=== PATIENT | male | born 1950 | race Two or more races ===

== ENCOUNTER 2018-07-15 14:56 | Inpatient (IN) | payer MEDICARE, OTHER ==
[~2018-07-15] VITALS: Ht 175.3 cm; Wt 93.0 kg
[~2018-07-15 14:56] MED LIST: ASPI-1159 PO; ATOR20TA; GLIP10TA10 PO; LATA2.5D2 BOTHEYE; LOSA25TA3 PO; METF-416 PO; NPH,100V11 SQ; TIMO10DR30 BOTHEYE
[2018-07-15] MEDS ORDERED: DILTIAZEM HCL 90MG TABLET PO ONE (15:45)
[2018-07-15] MEDS ORDERED: DILTIAZEM HCL 5MG/ML 5ML VIAL IV ONE (15:45)
[2018-07-15] MEDS ORDERED: ASPIRIN 81MG TABLET PO ONE (15:45)
[2018-07-15 15:56] LABS: BASOPHILS % 0.4 % (0.0-2.0); EOSINOPHILS % 0.9 % (0.0-5.0); HEMATOCRIT. 46.1 % (42.0-52.0); HEMOGLOBIN. 15.4 g/dL (14.0-18.0); LYMPHOCYTES % 27.8 % (20.0-50.0); MEAN CORPUSCULAR HEMOGLOBIN 32.8 pg (28.0-32.0); MEAN CORPUSCULAR VOLUME 98.3 fL (80.0-94.0); MEAN PLATELET VOLUME 10.6 fl (7.4-10.4); MONOCYTES % 7.1 % (2.0-8.0); NEUTROPHILS % 63.8 % (40.0-76.0); PLATELET 113 x1000/uL (130-400); RED BLOOD CELL COUNT 4.69 mill/uL (4.7-6.1); RED CELL DISTRIBUTION WIDTH 13.4 % (11.6-14.6)
[2018-07-15 15:59] LABS: CHLORIDE 101 mEq/L (98-107)
[2018-07-15] MEDS ORDERED: ACETAMINOPHEN 325MG TABLET PO PRN (21:45)
[2018-07-15] MEDS ORDERED: CLONIDINE 0.1MG TABLET PO PRN (21:45)
[2018-07-15] MEDS ORDERED: ONDANSETRON HCL 4MG/2ML INJ IV PRN (21:45)
[2018-07-15] MEDS ORDERED: IPRATROPIUM/ALBUTEROL 0.5-3(2.5)MG/3ML NEB INH PRN (21:45)
[2018-07-15] MEDS ORDERED: HYDROCODONE/ACETAMINOPHEN 5/325MG TABLET PO PRN (21:45)
[2018-07-15 23:30] VITALS: BP 142/65
[2018-07-15 23:45] VITALS: BP 142/66
[2018-07-15] MEDS ORDERED: INFLUENZA VIRUS VACCINE(AFLURIA) 0.5ML SYR IM ONE (23:45)
[2018-07-15] MEDS ORDERED: PNEUMOCOCCAL 23-VAL P-SAC VAC 0.5 ML IM ONE (23:45)
[2018-07-16] VITALS (8 sets, daily range): BP systolic 101–129; BP diastolic 65–82
[2018-07-16] MEDS: ENOXAPARIN 100MG/ML SYR SUBCUT SCH ×2 (01:39→09:30)
[2018-07-16] MEDS: DILTIAZEM HCL 30MG TABLET PO SCH ×2 (01:42→07:52)
[2018-07-16] MEDS ORDERED: DEXTROSE 50% WATER 50ML SYRINGE IV PRN (06:15)
[2018-07-16 06:46] LABS: BASOPHILS % 0.2 % (0.0-2.0); EOSINOPHILS % 1.7 % (0.0-5.0); HEMATOCRIT. 43.2 % (42.0-52.0); HEMOGLOBIN. 14.4 g/dL (14.0-18.0); LYMPHOCYTES % 36.3 % (20.0-50.0); MEAN CORPUSCULAR HEMOGLOBIN 32.6 pg (28.0-32.0); MEAN PLATELET VOLUME 11.2 fl (7.4-10.4); MONOCYTES % 6.9 % (2.0-8.0); NEUTROPHILS % 54.9 % (40.0-76.0); PLATELET 103 x1000/uL (130-400); RED BLOOD CELL COUNT 4.41 mill/uL (4.7-6.1); RED CELL DISTRIBUTION WIDTH 13.1 % (11.6-14.6)
[2018-07-16] MEDS: BLOOD SUGAR DIAGNOSTIC STRIP TEST SCH ×4 (06:51→21:03)
[2018-07-16 06:58] LABS: CHLORIDE 103 mEq/L (98-107)
[2018-07-16 07:07] LABS: INR 1.4
[2018-07-16] MEDS: INSULIN LISPRO 100 UNITS/ML SUBCUT SCH ×4 (07:20→21:17)
[2018-07-16 07:23] LABS: HDL CHOLESTEROL 31 mg/dL (40-59)
[2018-07-16 07:26] LABS: LDL CHOLESTEROL 83 mg/dL (5-100)
[2018-07-16 07:27] LABS: CREATINE KINASE 46 IU/L (39-308)
[2018-07-16] MEDS: ASPIRIN 81MG EC TABLET PO SCH (13:55)
[2018-07-16] MEDS: CARVEDILOL 3.125 MG TABLET PO SCH ×2 (13:56→23:42)
[2018-07-16 16:23] LABS: CLARITY URINE CLOUDY (CLEAR); COLOR URINE YELLOW (YELLOW); KETONES URINE NEGATIVE (NEGATIVE); LEUKOCYTE ESTERASE URINE NEGATIVE (NEGATIVE); NITRITE URINE NEGATIVE (NEGATIVE); OCCULT BLOOD URINE TRACE (NEGATIVE); PROTEIN URINE 1+ (NEGATIVE)
[2018-07-16 16:36] LABS: *AMPHETAMINES SCREEN URINE NEGATIVE (NEGATIVE); *BARBITURATES SCREEN URINE NEGATIVE (NEGATIVE); *BENZODIAZEPINES SCREEN URINE NEGATIVE (NEGATIVE); *COCAINE SCREEN URINE NEGATIVE (NEGATIVE)
[2018-07-16 16:38] LABS: CANNABINOID URINE SCREEN NEGATIVE (NEGATIVE); METHADONE URINE SCREEN NEGATIVE (NEGATIVE); OPIATES URINE SCREEN NEGATIVE (NEGATIVE); PHENCYCLIDINE URINE SCREEN NEGATIVE (NEGATIVE)
[2018-07-16] MEDS: RIVAROXABAN 10 MG TABLET PO SCH (21:00)
[2018-07-17] VITALS (14 sets, daily range): BP systolic 98–126; BP diastolic 58–91
[2018-07-17] MEDS ORDERED: CARVEDILOL 12.5MG TABLET PO SCH (06:00)
[2018-07-17] MEDS: CARVEDILOL 3.125 MG TABLET PO SCH (06:00)
[2018-07-17] MEDS: BLOOD SUGAR DIAGNOSTIC STRIP TEST SCH ×4 (06:36→20:38)
[2018-07-17] MEDS: INSULIN LISPRO 100 UNITS/ML SUBCUT SCH ×4 (06:38→20:46)
[2018-07-17 06:59] LABS: CHLORIDE 102 mEq/L (98-107)
[2018-07-17 07:08] LABS: CREATINE KINASE MB FRACTION 1.2 ng/mL (0.5-3.6); HDL CHOLESTEROL 30 mg/dL (40-59); LDL CHOLESTEROL 91 mg/dL (5-100)
[2018-07-17 07:10] LABS: CREATINE KINASE 33 IU/L (39-308)
[2018-07-17 07:22] LABS: BASOPHILS % 0.3 % (0.0-2.0); HEMATOCRIT. 43.3 % (42.0-52.0); HEMOGLOBIN. 14.4 g/dL (14.0-18.0); LYMPHOCYTES % 19.9 % (20.0-50.0); MEAN CORPUSCULAR HEMOGLOBIN 32.2 pg (28.0-32.0); MEAN CORPUSCULAR VOLUME 96.6 fL (80.0-94.0); MEAN PLATELET VOLUME 11.6 fl (7.4-10.4); MONOCYTES % 6.9 % (2.0-8.0); NEUTROPHILS % 71.9 % (40.0-76.0); PLATELET 100 x1000/uL (130-400); RED BLOOD CELL COUNT 4.48 mill/uL (4.7-6.1); RED CELL DISTRIBUTION WIDTH 13.3 % (11.6-14.6)
[2018-07-17] MEDS: ASPIRIN 81MG EC TABLET PO SCH (09:31)
[2018-07-17] MEDS ORDERED: MAGNESIUM 1 G PREMIX 100 ML IV SCH (15:00)
[2018-07-17] MEDS: RIVAROXABAN 10 MG TABLET PO SCH (17:32)
[2018-07-17] MEDS: DIGOXIN 125MCG TABLET PO SCH (17:35)
[2018-07-17] MEDS: CARVEDILOL 12.5MG TABLET PO SCH (17:36)
[2018-07-18] VITALS (14 sets, daily range): BP systolic 81–117; BP diastolic 52–79
[2018-07-18] MEDS: BLOOD SUGAR DIAGNOSTIC STRIP TEST SCH ×4 (05:44→21:16)
[2018-07-18] MEDS: CARVEDILOL 12.5MG TABLET PO SCH ×2 (06:20→18:29)
[2018-07-18 06:27] LABS: BASOPHILS % 0.2 % (0.0-2.0); EOSINOPHILS % 1.4 % (0.0-5.0); HEMATOCRIT. 42.6 % (42.0-52.0); HEMOGLOBIN. 14.4 g/dL (14.0-18.0); LYMPHOCYTES % 27.8 % (20.0-50.0); MEAN CORPUSCULAR HEMOGLOBIN 32.9 pg (28.0-32.0); MEAN CORPUSCULAR VOLUME 97.1 fL (80.0-94.0); MEAN PLATELET VOLUME 11.7 fl (7.4-10.4); MONOCYTES % 8.7 % (2.0-8.0); NEUTROPHILS % 61.9 % (40.0-76.0); PLATELET 97 x1000/uL (130-400); RED BLOOD CELL COUNT 4.39 mill/uL (4.7-6.1); RED CELL DISTRIBUTION WIDTH 13.2 % (11.6-14.6)
[2018-07-18 07:49] LABS: CHLORIDE 102 mEq/L (98-107)
[2018-07-18] MEDS: ASPIRIN 81MG EC TABLET PO SCH (08:24)
[2018-07-18] MEDS: INSULIN LISPRO 100 UNITS/ML SUBCUT SCH ×4 (08:24→21:35)
[2018-07-18] MEDS: DILTIAZEM HCL 60MG TABLET PO SCH ×2 (14:39→21:23)
[2018-07-18] MEDS ORDERED: INSULIN GLARGINE UD 100 UNITS/ML SYR SUBCUT SCH (15:00)
[2018-07-18] MEDS: RIVAROXABAN 10 MG TABLET PO SCH (17:19)
[2018-07-18] MEDS: DIGOXIN 125MCG TABLET PO SCH (17:19)
[2018-07-19] VITALS (13 sets, daily range): BP systolic 92–117; BP diastolic 58–97
[2018-07-19] MEDS: BLOOD SUGAR DIAGNOSTIC STRIP TEST SCH ×4 (06:25→21:04)
[2018-07-19] MEDS: CARVEDILOL 12.5MG TABLET PO SCH ×2 (06:25→18:33)
[2018-07-19] MEDS: DILTIAZEM HCL 60MG TABLET PO SCH (06:25)
[2018-07-19 06:47] LABS: BASOPHILS % 0.2 % (0.0-2.0); EOSINOPHILS % 0.2 % (0.0-5.0); HEMATOCRIT. 45.4 % (42.0-52.0); HEMOGLOBIN. 15.2 g/dL (14.0-18.0); LYMPHOCYTES % 14.4 % (20.0-50.0); MEAN CORPUSCULAR HEMOGLOBIN 32.8 pg (28.0-32.0); MEAN CORPUSCULAR VOLUME 97.8 fL (80.0-94.0); MEAN PLATELET VOLUME 11.7 fl (7.4-10.4); MONOCYTES % 4.7 % (2.0-8.0); NEUTROPHILS % 80.5 % (40.0-76.0); PLATELET 100 x1000/uL (130-400); RED BLOOD CELL COUNT 4.65 mill/uL (4.7-6.1); RED CELL DISTRIBUTION WIDTH 13.3 % (11.6-14.6)
[2018-07-19] MEDS: INSULIN LISPRO 100 UNITS/ML SUBCUT SCH ×4 (07:37→21:16)
[2018-07-19] MEDS: ASPIRIN 81MG EC TABLET PO SCH (09:00)
[2018-07-19 11:00] LABS: CREATINE KINASE 31 IU/L (39-308)
[2018-07-19 11:02] LABS: CREATINE KINASE MB FRACTION < 1.0 ng/mL (0.5-3.6)
[2018-07-19 11:54] LABS: DIGOXIN 0.5 ng/mL (0.9-2.0)
[2018-07-19] MEDS: DILTIAZEM HCL 30MG TABLET PO SCH ×2 (14:00→22:00)
[2018-07-19] MEDS ORDERED: SODIUM CHLORIDE 0.9% 500 ML IV SCH (14:15)
[2018-07-19] MEDS ORDERED: RIVAROXABAN 20 MG TABLET PO SCH (17:20)
[2018-07-20] VITALS (15 sets, daily range): BP systolic 99–140; BP diastolic 56–95
[2018-07-20] MEDS: DILTIAZEM HCL 30MG TABLET PO SCH ×3 (05:59→22:00)
[2018-07-20] MEDS: CARVEDILOL 12.5MG TABLET PO SCH ×2 (06:00→17:29)
[2018-07-20] MEDS: BLOOD SUGAR DIAGNOSTIC STRIP TEST SCH ×4 (06:02→21:09)
[2018-07-20 06:23] LABS: BASOPHILS % 0.3 % (0.0-2.0); EOSINOPHILS % 0.9 % (0.0-5.0); HEMOGLOBIN. 14.2 g/dL (14.0-18.0); LYMPHOCYTES % 26.4 % (20.0-50.0); MEAN CORPUSCULAR HEMOGLOBIN 33.1 pg (28.0-32.0); MEAN CORPUSCULAR VOLUME 97.7 fL (80.0-94.0); MEAN PLATELET VOLUME 11.7 fl (7.4-10.4); MONOCYTES % 7.1 % (2.0-8.0); NEUTROPHILS % 65.3 % (40.0-76.0); PLATELET 94 x1000/uL (130-400); RED CELL DISTRIBUTION WIDTH 13.4 % (11.6-14.6)
[2018-07-20 06:37] LABS: CHLORIDE 100 mEq/L (98-107)
[2018-07-20 07:01] LABS: CREATINE KINASE 22 IU/L (39-308)
[2018-07-20 07:13] LABS: DIGOXIN 0.4 ng/mL (0.9-2.0)
[2018-07-20] MEDS: INSULIN LISPRO 100 UNITS/ML SUBCUT SCH ×4 (07:20→21:13)
[2018-07-20] MEDS ORDERED: MAGNESIUM CITRATE 300ML SOLUTION PO NR (14:00)
[2018-07-20 14:04] LABS: HEPATITIS B SURFACE ANTIGEN NEGATIVE
[2018-07-20] MEDS: ASPIRIN 81MG EC TABLET PO SCH (14:07)
[2018-07-20 14:34] LABS: HEPATITIS A AB IGM NEGATIVE (NEGATIVE)
[2018-07-20 15:16] LABS: AMYLASE 35 IU/L (25-115)
[2018-07-20 18:50] LABS: CHLORIDE 101 mEq/L (98-107)
[2018-07-21] VITALS (12 sets, daily range): BP systolic 99–136; BP diastolic 50–91
[2018-07-21] MEDS ORDERED: SODIUM CHLORIDE 0.45% 1,000 ML IV SCH
[2018-07-21] MEDS: DILTIAZEM HCL 30MG TABLET PO SCH ×3 (06:00→21:03)
[2018-07-21] MEDS: CARVEDILOL 12.5MG TABLET PO SCH ×2 (06:00→18:00)
[2018-07-21] MEDS: BLOOD SUGAR DIAGNOSTIC STRIP TEST SCH ×4 (06:13→21:01)
[2018-07-21 07:06] LABS: BASOPHILS % 0.3 % (0.0-2.0); EOSINOPHILS % 0.8 % (0.0-5.0); HEMATOCRIT. 42.2 % (42.0-52.0); LYMPHOCYTES % 25.2 % (20.0-50.0); MEAN CORPUSCULAR HEMOGLOBIN 32.8 pg (28.0-32.0); MEAN CORPUSCULAR VOLUME 98.8 fL (80.0-94.0); MEAN PLATELET VOLUME 11.5 fl (7.4-10.4); MONOCYTES % 8.7 % (2.0-8.0); PLATELET 89 x1000/uL (130-400); RED BLOOD CELL COUNT 4.28 mill/uL (4.7-6.1); RED CELL DISTRIBUTION WIDTH 13.3 % (11.6-14.6)
[2018-07-21] MEDS: INSULIN LISPRO 100 UNITS/ML SUBCUT SCH ×4 (07:20→21:00)
[2018-07-21 07:47] LABS: CHLORIDE 101 mEq/L (98-107)
[2018-07-21] MEDS: ASPIRIN 81MG EC TABLET PO SCH (11:00)
[2018-07-21] MEDS ORDERED: ENOXAPARIN 80MG/0.8ML SYR SUBCUT SCH (13:30)
[2018-07-21] MEDS: SODIUM CHLORIDE 0.45% 1,000 ML IV SCH (15:41)
[2018-07-21] MEDS ORDERED: LEVOFLOXACIN 500MG PREMIX 100 ML IV SCH (18:00)
[2018-07-21] MEDS: METRONIDAZOLE 500 MG PREMIX 100 ML IV SCH ×2 (18:16→23:00)
[2018-07-21] MEDS: ENOXAPARIN 80MG/0.8ML SYR SUBCUT SCH (20:06)
[2018-07-22] VITALS: BP 112/74
[2018-07-22 02:00] VITALS: BP 117/75
[2018-07-22 04:00] VITALS: BP 111/61
[2018-07-22] MEDS: DILTIAZEM HCL 30MG TABLET PO SCH ×2 (05:04→13:17)
[2018-07-22] MEDS: METRONIDAZOLE 500 MG PREMIX 100 ML IV SCH ×2 (05:04→13:18)
[2018-07-22] MEDS: BLOOD SUGAR DIAGNOSTIC STRIP TEST SCH ×2 (05:30→11:36)
[2018-07-22] MEDS: INSULIN LISPRO 100 UNITS/ML SUBCUT SCH ×2 (05:31→12:02)
[2018-07-22 05:50] VITALS: BP 121/74
[2018-07-22] MEDS ORDERED: CARVEDILOL 25MG TABLET PO SCH (06:00)
[2018-07-22 06:36] LABS: BASOPHILS % 0.2 % (0.0-2.0); EOSINOPHILS % 0.8 % (0.0-5.0); HEMATOCRIT. 42.5 % (42.0-52.0); HEMOGLOBIN. 14.1 g/dL (14.0-18.0); LYMPHOCYTES % 21.6 % (20.0-50.0); MEAN CORPUSCULAR HEMOGLOBIN 32.7 pg (28.0-32.0); MEAN CORPUSCULAR VOLUME 98.5 fL (80.0-94.0); MEAN PLATELET VOLUME 12.2 fl (7.4-10.4); MONOCYTES % 9.6 % (2.0-8.0); NEUTROPHILS % 67.8 % (40.0-76.0); PLATELET 94 x1000/uL (130-400); RED BLOOD CELL COUNT 4.32 mill/uL (4.7-6.1); RED CELL DISTRIBUTION WIDTH 13.1 % (11.6-14.6)
[2018-07-22 06:42] LABS: CHLORIDE 99 mEq/L (98-107)
[2018-07-22 08:00] VITALS: BP 95/72
[2018-07-22] MEDS: ASPIRIN 81MG EC TABLET PO SCH (08:08)
[2018-07-22] MEDS: ENOXAPARIN 80MG/0.8ML SYR SUBCUT SCH (08:09)
[2018-07-22 12:00] VITALS: BP 113/72
[2018-07-22] MEDS: SODIUM CHLORIDE 0.45% 1,000 ML IV SCH ×2 (12:01→15:40)
== END 2018-07-22 15:52 | disposition home or self-care (01) | DRG 308 ==
LOC: ER 15:42 → 3WST 16:28 → EDBEDREQSVC 16:31 → EDBEDREQ 16:31 → EDBEDREQTM 16:31 → ENRESERV 21:45
PROVIDERS: ADMIT Internal Medicine; ATTEND Internal Medicine
DX: I48.91 Unspecified atrial fibrillation (principal); I50.23 Acute on chronic systolic (congestive) heart failure; D68.59 Other primary thrombophilia; K80.12 Calculus of gallbladder with acute and chronic cholecystitis without obstruction; R18.8 Other ascites; I25.10 Atherosclerotic heart disease of native coronary artery without angina pectoris; I11.0 Hypertensive heart disease with heart failure; E11.9 Type 2 diabetes mellitus without complications; F17.200 Nicotine dependence, unspecified, uncomplicated; I48.92 Unspecified atrial flutter; N28.1 Cyst of kidney, acquired; K74.60 Unspecified cirrhosis of liver; I95.9 Hypotension, unspecified; D69.6 Thrombocytopenia, unspecified; I25.5 Ischemic cardiomyopathy; R10.13 Epigastric pain; R74.0 Nonspecific elevation of levels of transaminase and lactic acid dehydrogenase [LDH]; E78.00 Pure hypercholesterolemia, unspecified; E83.42 Hypomagnesemia; R80.9 Proteinuria, unspecified; Z91.19 Patient's noncompliance with other medical treatment and regimen; Z95.810 Presence of automatic (implantable) cardiac defibrillator; Z95.1 Presence of aortocoronary bypass graft; Z79.82 Long term (current) use of aspirin; Z79.899 Other long term (current) drug therapy
CPT/HCPCS: 36415; 71045; 76700; 78227; 80048; 80061; 80162; 80305; 82150; 82550; 82553; 82962; 83036; 83735; 83880; 84439; 84443; 84484; 85379; 86022; 86705; 86709; 86803; 87340; 90686; 90732; 93005; 93306; 93970; 96372; 96374; 99291; A9537; J1650; J1815; J1956; J2405; J3475; J3490; J7040

== ENCOUNTER 2018-08-02 14:43 | Inpatient (IN) | payer MEDICARE ==
[~2018-08-02] VITALS: Ht 172.7 cm; Wt 85.7 kg
[~2018-08-02 14:43] MED LIST changes: -ASPI-1159 PO
[2018-08-02] MEDS ORDERED: ONDANSETRON HCL 4MG/2ML INJ IV STA (15:22)
[2018-08-02] MEDS ORDERED: MORPHINE SULFATE 4 MG/ML CPJ (NOT FOR IM USE) IV STA (15:22)
[2018-08-02] MEDS ORDERED: FUROSEMIDE 20MG/2ML VIAL IVP ONE (15:30)
[2018-08-02] MEDS ORDERED: NITROGLYCERIN OINT 1GM/INCH UDPKT TD ONE (15:30)
[2018-08-02 15:34] LABS: BASOPHILS % 0.4 % (0.0-2.0); EOSINOPHILS % 1.3 % (0.0-5.0); HEMATOCRIT. 44.5 % (42.0-52.0); LYMPHOCYTES % 24.3 % (20.0-50.0); MEAN CORPUSCULAR HEMOGLOBIN 33.1 pg (28.0-32.0); MEAN CORPUSCULAR VOLUME 98.6 fL (80.0-94.0); MEAN PLATELET VOLUME 10.9 fl (7.4-10.4); MONOCYTES % 7.7 % (2.0-8.0); NEUTROPHILS % 66.3 % (40.0-76.0); PLATELET 110 x1000/uL (130-400); RED BLOOD CELL COUNT 4.52 mill/uL (4.7-6.1); RED CELL DISTRIBUTION WIDTH 14.1 % (11.6-14.6)
[2018-08-02 15:38] LABS: CHLORIDE 100 mEq/L (98-107)
[2018-08-02 15:40] LABS: INR 1.8; PARTIAL THROMBOPLASTIN TIME 37.1 sec (23.4-31.0); PROTHROMBIN TIME 17.9 sec (9.6-11.0)
[2018-08-02] MEDS ORDERED: DIPHENHYDRAMINE 50MG/ML VIAL IV PRN (17:15)
[2018-08-02] MEDS ORDERED: NA PHOS,M-B/NA PHOS,DI-BA ENEMA 118ML PR PRN (17:15)
[2018-08-02] MEDS ORDERED: DEXTROSE 50% WATER 50ML SYRINGE IV PRN (17:15)
[2018-08-02] MEDS ORDERED: CLONIDINE 0.1MG TABLET PO PRN (17:15)
[2018-08-02] MEDS ORDERED: ACETAMINOPHEN 325MG TABLET PO PRN (17:15)
[2018-08-02] MEDS ORDERED: ONDANSETRON HCL 4MG/2ML INJ IV PRN (17:15)
[2018-08-02] MEDS ORDERED: HYDROCODONE/ACETAMINOPHEN 5/325MG TABLET PO PRN (17:15)
[2018-08-02] MEDS ORDERED: DOCUSATE SODIUM 100MG CAPSULE PO PRN (17:15)
[2018-08-02] MEDS ORDERED: LORAZEPAM 0.5MG TABLET PO PRN (17:15)
[2018-08-02] MEDS ORDERED: ACETAMINOPHEN 650MG SUPP PR PRN (17:15)
[2018-08-02] MEDS ORDERED: GUAIFENESIN 200MG/10ML SUGAR FREE UDC PO PRN (17:15)
[2018-08-02] MEDS ORDERED: MAGNESIUM/ALUMINUM HYDROXIDE/SIMETHICONE 30ML UDC PO PRN (17:15)
[2018-08-02 18:02] LABS: BG BASE EXCESS -3.3 mmol/L (-2.0-2.0); BG CARBOXYHEMOGLOBIN 0.5 % (0.5-1.5); BG DEOXYHEMOGLOBIN 7.6 % (0.0-5.0); BG FRACTION INSPIRED OXYGEN 21; BG HCO3 ACT 20.9 mmol/L (22.0-26.0); BG METHEMOGLOBIN 0.3 % (0.0-1.5); BG OXYGEN SATURATION 92.3 % (92.0-98.5); BG OXYHEMOGLOBIN 91.6 % (94.0-97.0); BG PCO2 35.2 mmHg (35.0-45.0); BG PH 7.392 (7.350-7.450); BG PO2 67.1 mmHg (75.0-100.0); BG SAMPLE SITE RIGHT RADIAL; BG TOTAL HEMOGLOBIN 14.6 g/dL (12.0-18.0); BG VENT MODE ROOM AIR
[2018-08-02 18:34] LABS: CLARITY URINE CLEAR (CLEAR); COLOR URINE YELLOW (YELLOW); KETONES URINE NEGATIVE (NEGATIVE); LEUKOCYTE ESTERASE URINE NEGATIVE (NEGATIVE); NITRITE URINE NEGATIVE (NEGATIVE); OCCULT BLOOD URINE NEGATIVE (NEGATIVE); PROTEIN URINE NEGATIVE (NEGATIVE); SPECIFIC GRAVITY URINE 1.009 (1.005-1.030); UROBILINOGEN URINE 0.2 E.U./dL (0.2-1.0)
[2018-08-02 18:45] LABS: *BENZODIAZEPINES SCREEN URINE NEGATIVE (NEGATIVE); *COCAINE SCREEN URINE NEGATIVE (NEGATIVE); METHADONE URINE SCREEN NEGATIVE (NEGATIVE); OPIATES URINE SCREEN PRESUMTIVE POSITIVE (NEGATIVE); PHENCYCLIDINE URINE SCREEN NEGATIVE (NEGATIVE)
[2018-08-02 18:46] LABS: *AMPHETAMINES SCREEN URINE NEGATIVE (NEGATIVE); *BARBITURATES SCREEN URINE NEGATIVE (NEGATIVE); CANNABINOID URINE SCREEN NEGATIVE (NEGATIVE)
[2018-08-02] MEDS ORDERED: PIPERACILLIN/TAZ 3.375G PREMIX 50 ML IV NR (20:15)
[2018-08-02] MEDS ORDERED: IOHEXOL-350 100 ML BOTTLE ONE (21:33)
[2018-08-02 23:13] VITALS: BP 154/105
[2018-08-03 01:03] LABS: CREATINE KINASE MB FRACTION 1.3 ng/mL (0.5-3.6)
[2018-08-03] MEDS ORDERED: CARV12.545 PO (01:13)
[2018-08-03] MEDS ORDERED: METR-218 PO (01:13)
[2018-08-03] MEDS ORDERED: RIVA20TA PO (01:13)
[2018-08-03] MEDS ORDERED: DILT-26 PO (01:13)
[2018-08-03] MEDS ORDERED: PIPERACILLIN/TAZ 3.375G PREMIX 50 ML IV SCH (02:00)
[2018-08-03 04:00] VITALS: BP 129/86
[2018-08-03] MEDS: DILTIAZEM HCL 30MG TABLET PO SCH ×4 (05:08→17:03)
[2018-08-03] MEDS: PIPERACILLIN/TAZ 3.375G PREMIX 50 ML IV SCH ×3 (05:16→17:51)
[2018-08-03] MEDS: NITROGLYCERIN OINT 1GM/INCH UDPKT TD SCH ×3 (05:17→21:15)
[2018-08-03 06:27] LABS: BASOPHILS % 0.2 % (0.0-2.0); EOSINOPHILS % 1.1 % (0.0-5.0); HEMATOCRIT. 39.8 % (42.0-52.0); HEMOGLOBIN. 13.4 g/dL (14.0-18.0); LYMPHOCYTES % 26.3 % (20.0-50.0); MEAN CORPUSCULAR HEMOGLOBIN 33.1 pg (28.0-32.0); MEAN CORPUSCULAR VOLUME 98.2 fL (80.0-94.0); MEAN PLATELET VOLUME 11.2 fl (7.4-10.4); MONOCYTES % 9.5 % (2.0-8.0); NEUTROPHILS % 62.9 % (40.0-76.0); PLATELET 93 x1000/uL (130-400); RED BLOOD CELL COUNT 4.05 mill/uL (4.7-6.1); RED CELL DISTRIBUTION WIDTH 13.6 % (11.6-14.6)
[2018-08-03 06:39] LABS: CHLORIDE 103 mEq/L (98-107)
[2018-08-03] MEDS: BLOOD SUGAR DIAGNOSTIC STRIP TEST SCH ×4 (06:47→21:04)
[2018-08-03 06:50] LABS: CREATINE KINASE 38 IU/L (39-308)
[2018-08-03 06:54] LABS: CREATINE KINASE MB FRACTION < 1.0 ng/mL (0.5-3.6)
[2018-08-03] MEDS: INSULIN LISPRO 100 UNITS/ML SUBCUT SCH ×4 (07:48→21:21)
[2018-08-03 08:00] VITALS: BP 177/90
[2018-08-03 08:57] LABS: INR 1.5; PROTHROMBIN TIME 15.1 sec (9.6-11.0)
[2018-08-03] MEDS ORDERED: ASPIRIN 81MG TABLET PO SCH (09:00)
[2018-08-03] MEDS: FUROSEMIDE 40MG/4ML VIAL IVP SCH ×2 (09:05→16:49)
[2018-08-03] MEDS ORDERED: CLONIDINE 0.1MG TABLET PO PRN (10:15)
[2018-08-03] MEDS: CARVEDILOL 12.5MG TABLET PO SCH ×2 (11:05→21:00)
[2018-08-03] MEDS: LOSARTAN POTASSIUM 25 MG TABLET PO SCH (11:05)
[2018-08-03 12:49] VITALS: BP 127/78
[2018-08-03 16:00] VITALS: BP 103/63
[2018-08-03 20:14] VITALS: BP 94/55
[2018-08-03] MEDS ORDERED: CARVEDILOL 6.25 MG TABLET PO SCH (21:00)
[2018-08-03 23:49] VITALS: BP 109/68
[2018-08-04] VITALS (11 sets, daily range): BP systolic 90–125; BP diastolic 49–84
[2018-08-04] MEDS: PIPERACILLIN/TAZ 3.375G PREMIX 50 ML IV SCH ×4 (00:42→18:00)
[2018-08-04] MEDS: IPRATROPIUM/ALBUTEROL 0.5-3(2.5)MG/3ML NEB INH SCH ×3 (02:11→23:01)
[2018-08-04] MEDS: DILTIAZEM HCL 30MG TABLET PO SCH ×4 (06:00→18:00)
[2018-08-04] MEDS: NITROGLYCERIN OINT 1GM/INCH UDPKT TD SCH ×3 (06:04→22:00)
[2018-08-04] MEDS: BLOOD SUGAR DIAGNOSTIC STRIP TEST SCH ×3 (06:05→20:17)
[2018-08-04 07:09] LABS: INR 1.4; PROTHROMBIN TIME 14.4 sec (9.6-11.0)
[2018-08-04 07:16] LABS: BASOPHILS % 0.4 % (0.0-2.0); EOSINOPHILS % 2.3 % (0.0-5.0); HEMOGLOBIN. 13.3 g/dL (14.0-18.0); LYMPHOCYTES % 32.6 % (20.0-50.0); MEAN CORPUSCULAR HEMOGLOBIN 32.8 pg (28.0-32.0); MEAN CORPUSCULAR VOLUME 98.5 fL (80.0-94.0); MEAN PLATELET VOLUME 11.5 fl (7.4-10.4); MONOCYTES % 9.9 % (2.0-8.0); NEUTROPHILS % 54.8 % (40.0-76.0); PLATELET 101 x1000/uL (130-400); RED BLOOD CELL COUNT 4.06 mill/uL (4.7-6.1); RED CELL DISTRIBUTION WIDTH 13.8 % (11.6-14.6)
[2018-08-04] MEDS: INSULIN LISPRO 100 UNITS/ML SUBCUT SCH ×3 (07:50→20:31)
[2018-08-04 07:56] LABS: CHLORIDE 99 mEq/L (98-107)
[2018-08-04] MEDS: LOSARTAN POTASSIUM 25 MG TABLET PO SCH (08:06)
[2018-08-04] MEDS: CARVEDILOL 12.5MG TABLET PO SCH (08:20)
[2018-08-04] MEDS: FUROSEMIDE 40MG/4ML VIAL IVP SCH ×2 (08:20→17:56)
[2018-08-04] MEDS ORDERED: DEXT 5%/0.45% NACL 500ML 500 ML IV ONE (09:00)
[2018-08-04] MEDS ORDERED: ENOXAPARIN 100MG/ML SYR SUBCUT SCH (09:00)
[2018-08-04] MEDS ORDERED: HEPARIN SODIUM 1,000 UNIT/1ML VIAL IV ONE (10:34)
[2018-08-04] MEDS ORDERED: NITROGLYCERIN 50MCG/ML 10ML VIAL (CATH LAB) IV ONE (10:34)
[2018-08-04] MEDS ORDERED: NICARDIPINE 100MCG/ML 10ML VIAL (CATH LAB) IV ONE (10:34)
[2018-08-04] MEDS ORDERED: ASPIRIN/SOD BICARB/CITRIC ACID 324MG TAB EFF ONE ×2 (12:21→13:17)
[2018-08-04] MEDS ORDERED: LIDOCAINE HCL 1% 20ML VIAL (Pyxis) INJ ONE (12:21)
[2018-08-04] MEDS ORDERED: IODIXANOL 320MG/ML 100 ML BOTTLE IV ONE (12:21)
[2018-08-04] MEDS ORDERED: FENTANYL CITRATE/PF 50MCG/ML 2ML VIAL ONE (13:20)
[2018-08-04] MEDS ORDERED: MIDAZOLAM HCL 2 MG/2 ML VIAL ONE (13:20)
[2018-08-04] MEDS ORDERED: MORPHINE SULFATE 4 MG/ML CPJ (NOT FOR IM USE) IV PRN (14:30)
[2018-08-04] MEDS ORDERED: ATROPINE SULFATE 1MG/10ML SYR IV PRN (14:30)
[2018-08-04] MEDS ORDERED: ONDANSETRON HCL 4MG/2ML INJ IV PRN (14:30)
[2018-08-04] MEDS ORDERED: SODIUM CHLORIDE 0.45% 500 ML IV ONE (14:30)
[2018-08-04] MEDS ORDERED: ACETAMINOPHEN 325MG TABLET PO PRN (14:30)
[2018-08-04] MEDS: CARVEDILOL 6.25 MG TABLET PO SCH (20:30)
[2018-08-05] VITALS (13 sets, daily range): BP systolic 90–120; BP diastolic 44–83
[2018-08-05] MEDS: DILTIAZEM HCL 30MG TABLET PO SCH ×3 (00:16→11:46)
[2018-08-05] MEDS: PIPERACILLIN/TAZ 3.375G PREMIX 50 ML IV SCH ×3 (00:16→12:12)
[2018-08-05] MEDS: IPRATROPIUM/ALBUTEROL 0.5-3(2.5)MG/3ML NEB INH SCH ×3 (04:38→15:55)
[2018-08-05] MEDS: NITROGLYCERIN OINT 1GM/INCH UDPKT TD SCH ×2 (05:59→14:08)
[2018-08-05] MEDS: INSULIN LISPRO 100 UNITS/ML SUBCUT SCH ×2 (06:00→12:12)
[2018-08-05] MEDS: BLOOD SUGAR DIAGNOSTIC STRIP TEST SCH ×2 (06:00→11:32)
[2018-08-05 06:39] LABS: BASOPHILS % 0.3 % (0.0-2.0); HEMATOCRIT. 42.7 % (42.0-52.0); HEMOGLOBIN. 14.2 g/dL (14.0-18.0); LYMPHOCYTES % 30.8 % (20.0-50.0); MEAN CORPUSCULAR HEMOGLOBIN 32.5 pg (28.0-32.0); MEAN CORPUSCULAR VOLUME 98.1 fL (80.0-94.0); MEAN PLATELET VOLUME 10.4 fl (7.4-10.4); MONOCYTES % 10.7 % (2.0-8.0); NEUTROPHILS % 56.2 % (40.0-76.0); PLATELET 107 x1000/uL (130-400); RED BLOOD CELL COUNT 4.35 mill/uL (4.7-6.1)
[2018-08-05 07:28] LABS: CHLORIDE 97 mEq/L (98-107)
[2018-08-05] MEDS: FUROSEMIDE 40MG/4ML VIAL IVP SCH (07:55)
[2018-08-05] MEDS: LOSARTAN POTASSIUM 25 MG TABLET PO SCH (07:55)
[2018-08-05] MEDS: CARVEDILOL 6.25 MG TABLET PO SCH (07:56)
[2018-08-05] MEDS ORDERED: POTASSIUM CHLORIDE 20MEQ TABLET SR PO NR (09:45)
[2018-08-05] MEDS ORDERED: RIVAROXABAN 20 MG TABLET PO SCH (17:20)
[2018-08-05] MEDS ORDERED: ATORVASTATIN CALCIUM 20MG TABLET PO SCH (21:00)
== END 2018-08-05 17:30 | disposition home or self-care (01) | DRG 287 ==
LOC: ER 14:43 → 6WST 17:01 → EDBEDREQ 17:02 → ENRESERV 20:26 → 3WST 08-04 14:40
PROVIDERS: ADMIT Internal Medicine; ATTEND Internal Medicine
PROC: 4A023N7 Measurement of Cardiac Sampling and Pressure, Left Heart, Percutaneous Approach (ICD-10-PCS; principal; 2018-08-04)
PROC: B2111ZZ Fluoroscopy of Multiple Coronary Arteries using Low Osmolar Contrast (ICD-10-PCS; 2018-08-04)
PROC: B2131ZZ Fluoroscopy of Multiple Coronary Artery Bypass Grafts using Low Osmolar Contrast (ICD-10-PCS; 2018-08-04)
DX: I11.0 Hypertensive heart disease with heart failure (principal); I48.1 Persistent atrial fibrillation; D68.59 Other primary thrombophilia; K80.00 Calculus of gallbladder with acute cholecystitis without obstruction; R18.8 Other ascites; I48.92 Unspecified atrial flutter; I50.23 Acute on chronic systolic (congestive) heart failure; D69.6 Thrombocytopenia, unspecified; E11.65 Type 2 diabetes mellitus with hyperglycemia; K74.60 Unspecified cirrhosis of liver; E78.5 Hyperlipidemia, unspecified; I25.5 Ischemic cardiomyopathy; I25.10 Atherosclerotic heart disease of native coronary artery without angina pectoris; E78.00 Pure hypercholesterolemia, unspecified; I25.82 Chronic total occlusion of coronary artery; I48.2 Chronic atrial fibrillation; Z79.01 Long term (current) use of anticoagulants; Z95.1 Presence of aortocoronary bypass graft; Z95.810 Presence of automatic (implantable) cardiac defibrillator; Z91.19 Patient's noncompliance with other medical treatment and regimen; I25.2 Old myocardial infarction; Z79.84 Long term (current) use of oral hypoglycemic drugs
CPT/HCPCS: 36415; 36600; 71045; 71275; 76700; 80048; 80305; 82375; 82550; 82553; 82805; 82962; 83735; 83880; 84484; 93005; 93459; 93970; 94618; 96374; 96375; 99291; C1769; C1887; C1893; J1644; J1815; J1940; J2250; J2270; J2405; J2543; J3010; J3490; J7050; J7620; Q9967

== ENCOUNTER 2018-09-14 15:41 | Inpatient (IN) | payer MEDICARE ==
[~2018-09-14] VITALS: Ht 172.7 cm; Wt 86.6 kg
[~2018-09-14 15:41] MED LIST changes: -ATOR20TA; +ATOR20TA PO; +RIVA20TA PO
[2018-09-14] MEDS ORDERED: ASPIRIN 81MG TABLET PO ONE (16:30)
[2018-09-14 16:47] LABS: BASOPHILS % 0.4 % (0.0-2.0); EOSINOPHILS % 1.5 % (0.0-5.0); HEMATOCRIT. 43.5 % (42.0-52.0); HEMOGLOBIN. 14.4 g/dL (14.0-18.0); LYMPHOCYTES % 25.4 % (20.0-50.0); MEAN CORPUSCULAR HEMOGLOBIN 32.5 pg (28.0-32.0); MEAN PLATELET VOLUME 11.5 fl (7.4-10.4); MONOCYTES % 8.4 % (2.0-8.0); NEUTROPHILS % 64.3 % (40.0-76.0); PLATELET 81 x1000/uL (130-400); RED BLOOD CELL COUNT 4.44 mill/uL (4.7-6.1)
[2018-09-14 16:50] LABS: CHLORIDE 103 mEq/L (98-107)
[2018-09-14 16:54] LABS: D-DIMER 1.38 mg/L FEU (<0.50); INR 1.4; PARTIAL THROMBOPLASTIN TIME 29.9 sec (23.4-31.0); PROTHROMBIN TIME 14.7 sec (9.6-11.0)
[2018-09-14 16:58] LABS: CLARITY URINE CLEAR (CLEAR); COLOR URINE DARK YELLOW (YELLOW); KETONES URINE TRACE (NEGATIVE); LEUKOCYTE ESTERASE URINE 1+ (NEGATIVE); NITRITE URINE NEGATIVE (NEGATIVE); OCCULT BLOOD URINE NEGATIVE (NEGATIVE); PROTEIN URINE TRACE (NEGATIVE); SPECIFIC GRAVITY URINE 1.019 (1.005-1.030)
[2018-09-14] MEDS ORDERED: FUROSEMIDE 20MG/2ML VIAL IVP ONE (17:15)
[2018-09-14 20:40] VITALS: BP 123/88
[2018-09-14] MEDS ORDERED: CARV12.545 PO (21:47)
[2018-09-14] MEDS ORDERED: FURO40TA5 PO (21:47)
[2018-09-14] MEDS ORDERED: MIRT15TA6 PO (21:47)
[2018-09-14] MEDS ORDERED: GLIP10TA10 PO (21:47)
[2018-09-14] MEDS ORDERED: CARV6.2548 PO (21:50)
[2018-09-14] MEDS ORDERED: ACETAMINOPHEN 325MG TABLET PO PRN (22:30)
[2018-09-14] MEDS ORDERED: DEXTROSE 50% WATER 50ML SYRINGE IV PRN (22:30)
[2018-09-14] MEDS ORDERED: RIVAROXABAN 20 MG TABLET PO SCH (22:45)
[2018-09-14] MEDS ORDERED: CARVEDILOL 6.25 MG TABLET PO SCH (23:00)
[2018-09-14] MEDS: ATORVASTATIN CALCIUM 20MG TABLET PO SCH (23:08)
[2018-09-15] VITALS: BP 119/61
[2018-09-15] LABS: CREATINE KINASE 35 IU/L (39-308)
[2018-09-15 00:02] LABS: CREATINE KINASE MB FRACTION < 1.0 ng/mL (0.5-3.6)
[2018-09-15] MEDS ORDERED: IOHEXOL-350 100 ML BOTTLE ONE (02:51)
[2018-09-15 04:00] VITALS: BP 110/65
[2018-09-15] MEDS: BLOOD SUGAR DIAGNOSTIC STRIP TEST SCH ×4 (05:51→21:05)
[2018-09-15] MEDS: INSULIN LISPRO 100 UNITS/ML SUBCUT SCH ×4 (06:21→21:00)
[2018-09-15 06:22] LABS: BASOPHILS % 0.5 % (0.0-2.0); EOSINOPHILS % 1.6 % (0.0-5.0); HEMATOCRIT. 39.4 % (42.0-52.0); HEMOGLOBIN. 13.1 g/dL (14.0-18.0); LYMPHOCYTES % 30.3 % (20.0-50.0); MEAN CORPUSCULAR HEMOGLOBIN 32.1 pg (28.0-32.0); MEAN CORPUSCULAR VOLUME 96.6 fL (80.0-94.0); MEAN PLATELET VOLUME 11.5 fl (7.4-10.4); MONOCYTES % 8.1 % (2.0-8.0); NEUTROPHILS % 59.5 % (40.0-76.0); PLATELET 69 x1000/uL (130-400); RED BLOOD CELL COUNT 4.08 mill/uL (4.7-6.1); RED CELL DISTRIBUTION WIDTH 13.7 % (11.6-14.6)
[2018-09-15] MEDS: FUROSEMIDE 40MG/4ML VIAL IVP SCH ×2 (06:43→18:56)
[2018-09-15 06:45] LABS: CHLORIDE 104 mEq/L (98-107)
[2018-09-15] MEDS ORDERED: FUROSEMIDE 40MG TABLET PO SCH (07:15)
[2018-09-15 07:52] LABS: HDL CHOLESTEROL 25 mg/dL (40-59)
[2018-09-15 07:53] LABS: LDL CHOLESTEROL 45 mg/dL (5-100)
[2018-09-15 07:54] LABS: CREATINE KINASE 31 IU/L (39-308); T4 FREE 1.56 ng/dL (0.76-1.46)
[2018-09-15 07:58] LABS: CREATINE KINASE MB FRACTION < 1.0 ng/mL (0.5-3.6)
[2018-09-15 08:00] VITALS: BP 97/56
[2018-09-15] MEDS: TIMOLOL MALEATE 0.5% OPHTH DROPS 5ML EACHEYE SCH ×2 (08:42→18:57)
[2018-09-15] MEDS: GLIPIZIDE 10MG TABLET PO SCH ×2 (08:42→18:56)
[2018-09-15] MEDS: LOSARTAN POTASSIUM 25 MG TABLET PO SCH (08:43)
[2018-09-15] MEDS ORDERED: CARVEDILOL 12.5MG TABLET PO SCH (09:00)
[2018-09-15] MEDS ORDERED: FUROSEMIDE 40MG/4ML VIAL IVP NR (11:15)
[2018-09-15] MEDS ORDERED: POTASSIUM CHLORIDE 20MEQ TABLET SR PO NR (11:15)
[2018-09-15 12:00] VITALS: BP 104/72
[2018-09-15 13:24] LABS: CREATINE KINASE 32 IU/L (39-308)
[2018-09-15 13:26] LABS: CREATINE KINASE MB FRACTION < 1.0 ng/mL (0.5-3.6)
[2018-09-15] MEDS: SPIRONOLACTONE 25MG TABLET PO SCH (14:35)
[2018-09-15 16:00] VITALS: BP 122/76
[2018-09-15 18:00] LABS: BG BASE EXCESS -0.4 mmol/L (-2.0-2.0); BG FRACTION INSPIRED OXYGEN 21; BG HCO3 ACT 23.3 mmol/L (22.0-26.0); BG PCO2 35.7 mmHg (35.0-45.0); BG PH 7.433 (7.350-7.450); BG PO2 66.6 mmHg (75.0-100.0); BG SAMPLE SITE LEFT RADIAL; BG VENT MODE ROOM AIR
[2018-09-15] MEDS ORDERED: DILTIAZEM HCL 30MG TABLET PO SCH (18:00)
[2018-09-15 18:01] LABS: BG CARBOXYHEMOGLOBIN 0.5 % (0.5-1.5); BG DEOXYHEMOGLOBIN 7.7 % (0.0-5.0); BG METHEMOGLOBIN 0.1 % (0.0-1.5); BG OXYGEN SATURATION 92.3 % (92.0-98.5); BG OXYHEMOGLOBIN 91.7 % (94.0-97.0); BG TOTAL HEMOGLOBIN 14.3 g/dL (12.0-18.0)
[2018-09-15] MEDS: POTASSIUM CHLORIDE 20MEQ TABLET SR PO SCH (18:56)
[2018-09-15 20:00] VITALS: BP 101/58
[2018-09-15] MEDS ORDERED: CARVEDILOL 6.25 MG TABLET PO SCH (21:00)
[2018-09-15] MEDS: CARVEDILOL 6.25 MG TABLET PO SCH (21:00)
[2018-09-15] MEDS: ATORVASTATIN CALCIUM 20MG TABLET PO SCH (21:02)
[2018-09-15] MEDS: LATANOPROST 0.005% OPHTH DROPS 2.5ML BOTHEYE SCH (21:03)
[2018-09-15] MEDS: MIRTAZAPINE 15MG TABLET PO SCH (21:03)
[2018-09-16] VITALS (10 sets, daily range): BP systolic 75–132; BP diastolic 53–91
[2018-09-16] MEDS: FUROSEMIDE 40MG/4ML VIAL IVP SCH (05:50)
[2018-09-16] MEDS: BLOOD SUGAR DIAGNOSTIC STRIP TEST SCH ×4 (06:07→20:29)
[2018-09-16] MEDS: INSULIN LISPRO 100 UNITS/ML SUBCUT SCH ×4 (06:08→21:10)
[2018-09-16] MEDS: GLIPIZIDE 10MG TABLET PO SCH ×2 (06:10→17:40)
[2018-09-16 06:59] LABS: BASOPHILS % 0.4 % (0.0-2.0); HEMATOCRIT. 43.8 % (42.0-52.0); HEMOGLOBIN. 14.9 g/dL (14.0-18.0); LYMPHOCYTES % 17.5 % (20.0-50.0); MEAN CORPUSCULAR HEMOGLOBIN 33.1 pg (28.0-32.0); MEAN CORPUSCULAR VOLUME 97.2 fL (80.0-94.0); MEAN PLATELET VOLUME 12.2 fl (7.4-10.4); MONOCYTES % 6.9 % (2.0-8.0); NEUTROPHILS % 75.2 % (40.0-76.0); PLATELET 80 x1000/uL (130-400); RED BLOOD CELL COUNT 4.51 mill/uL (4.7-6.1); RED CELL DISTRIBUTION WIDTH 13.9 % (11.6-14.6)
[2018-09-16 07:19] LABS: CHLORIDE 103 mEq/L (98-107)
[2018-09-16 07:20] LABS: HEPATITIS B SURFACE ANTIGEN NEGATIVE
[2018-09-16 07:30] LABS: CREATINE KINASE 36 IU/L (39-308)
[2018-09-16 07:32] LABS: CREATINE KINASE MB FRACTION < 1.0 ng/mL (0.5-3.6)
[2018-09-16 07:50] LABS: HEPATITIS A AB IGM NEGATIVE (NEGATIVE)
[2018-09-16] MEDS: TIMOLOL MALEATE 0.5% OPHTH DROPS 5ML EACHEYE SCH ×2 (09:53→18:08)
[2018-09-16] MEDS: POTASSIUM CHLORIDE 20MEQ TABLET SR PO SCH ×2 (09:54→18:08)
[2018-09-16] MEDS: CARVEDILOL 6.25 MG TABLET PO SCH (09:54)
[2018-09-16] MEDS: LOSARTAN POTASSIUM 25 MG TABLET PO SCH (09:55)
[2018-09-16] MEDS: SPIRONOLACTONE 25MG TABLET PO SCH (09:55)
[2018-09-16] MEDS ORDERED: FUROSEMIDE 40MG/4ML VIAL IVP NR (11:15)
[2018-09-16] MEDS ORDERED: NITROGLYCERIN OINT 1GM/INCH UDPKT TD SCH (12:00)
[2018-09-16] MEDS ORDERED: METOLAZONE 2.5MG TABLET PO NR (12:15)
[2018-09-16] MEDS: DILTIAZEM HCL 60MG TABLET PO SCH ×3 (15:04→23:39)
[2018-09-16] MEDS ORDERED: LOSARTAN POTASSIUM 25 MG TABLET PO SCH (17:00)
[2018-09-16] MEDS: FUROSEMIDE 100MG/10ML VIAL IVP SCH (18:00)
[2018-09-16] MEDS: NITROGLYCERIN OINT 1GM/INCH UDPKT TD SCH ×2 (18:07→20:00)
[2018-09-16] MEDS: PIPERACILLIN/TAZ 3.375G PREMIX 50 ML IV SCH ×2 (18:07→23:38)
[2018-09-16] MEDS: RIVAROXABAN 20 MG TABLET PO SCH (18:09)
[2018-09-16] MEDS: CARVEDILOL 3.125 MG TABLET PO SCH (20:54)
[2018-09-16] MEDS: LATANOPROST 0.005% OPHTH DROPS 2.5ML BOTHEYE SCH (21:04)
[2018-09-16] MEDS: MIRTAZAPINE 15MG TABLET PO SCH (21:04)
[2018-09-17] VITALS (8 sets, daily range): BP systolic 78–115; BP diastolic 51–80
[2018-09-17] MEDS: PIPERACILLIN/TAZ 3.375G PREMIX 50 ML IV SCH ×3 (05:16→19:24)
[2018-09-17] MEDS: DILTIAZEM HCL 60MG TABLET PO SCH (05:20)
[2018-09-17] MEDS: FUROSEMIDE 100MG/10ML VIAL IVP SCH (05:20)
[2018-09-17] MEDS: BLOOD SUGAR DIAGNOSTIC STRIP TEST SCH ×4 (05:35→21:00)
[2018-09-17] MEDS: INSULIN LISPRO 100 UNITS/ML SUBCUT SCH ×4 (06:13→22:07)
[2018-09-17 07:55] LABS: BASOPHILS % 0.3 % (0.0-2.0); EOSINOPHILS % 0.5 % (0.0-5.0); HEMOGLOBIN. 12.9 g/dL (14.0-18.0); LYMPHOCYTES % 24.4 % (20.0-50.0); MEAN CORPUSCULAR HEMOGLOBIN 32.7 pg (28.0-32.0); MEAN CORPUSCULAR VOLUME 96.6 fL (80.0-94.0); MEAN PLATELET VOLUME 11.8 fl (7.4-10.4); MONOCYTES % 6.5 % (2.0-8.0); NEUTROPHILS % 68.3 % (40.0-76.0); PLATELET 70 x1000/uL (130-400); RED BLOOD CELL COUNT 3.93 mill/uL (4.7-6.1); RED CELL DISTRIBUTION WIDTH 13.9 % (11.6-14.6)
[2018-09-17 08:32] LABS: CHLORIDE 102 mEq/L (98-107)
[2018-09-17] MEDS: TIMOLOL MALEATE 0.5% OPHTH DROPS 5ML EACHEYE SCH ×2 (10:50→19:24)
[2018-09-17] MEDS: POTASSIUM CHLORIDE 20MEQ TABLET SR PO SCH ×2 (10:50→19:24)
[2018-09-17] MEDS: CARVEDILOL 3.125 MG TABLET PO SCH ×2 (10:51→22:08)
[2018-09-17] MEDS: GLIPIZIDE 10MG TABLET PO SCH ×2 (10:51→19:25)
[2018-09-17] MEDS: FUROSEMIDE 40MG/4ML VIAL IVP SCH ×3 (10:52→17:00)
[2018-09-17] MEDS: NITROGLYCERIN OINT 1GM/INCH UDPKT TD SCH ×2 (12:00→18:00)
[2018-09-17] MEDS: DILTIAZEM HCL 30MG TABLET PO SCH ×2 (12:00→18:00)
[2018-09-17] MEDS: RIVAROXABAN 20 MG TABLET PO SCH (19:25)
[2018-09-17] MEDS: SPIRONOLACTONE 25MG TABLET PO SCH (19:25)
[2018-09-17] MEDS: LATANOPROST 0.005% OPHTH DROPS 2.5ML BOTHEYE SCH (22:08)
[2018-09-17] MEDS: MIRTAZAPINE 15MG TABLET PO SCH (22:09)
[2018-09-18] VITALS: BP 99/60
[2018-09-18 04:00] VITALS: BP 99/59
[2018-09-18] MEDS: DILTIAZEM HCL 30MG TABLET PO SCH ×2 (06:00)
[2018-09-18] MEDS: NITROGLYCERIN OINT 1GM/INCH UDPKT TD SCH ×2 (06:00)
[2018-09-18] MEDS: BLOOD SUGAR DIAGNOSTIC STRIP TEST SCH ×4 (06:20→21:16)
[2018-09-18] MEDS: INSULIN LISPRO 100 UNITS/ML SUBCUT SCH ×4 (06:20→21:22)
[2018-09-18] MEDS: PIPERACILLIN/TAZ 3.375G PREMIX 50 ML IV SCH ×4 (06:22→17:49)
[2018-09-18 06:50] LABS: BASOPHILS % 0.3 % (0.0-2.0); EOSINOPHILS % 2.6 % (0.0-5.0); HEMOGLOBIN. 13.3 g/dL (14.0-18.0); LYMPHOCYTES % 29.1 % (20.0-50.0); MEAN CORPUSCULAR HEMOGLOBIN 32.9 pg (28.0-32.0); MEAN CORPUSCULAR VOLUME 96.7 fL (80.0-94.0); MEAN PLATELET VOLUME 11.4 fl (7.4-10.4); PLATELET 78 x1000/uL (130-400); RED BLOOD CELL COUNT 4.03 mill/uL (4.7-6.1)
[2018-09-18 06:55] LABS: CHLORIDE 95 mEq/L (98-107)
[2018-09-18 08:00] VITALS: BP 98/70
[2018-09-18] MEDS: GLIPIZIDE 10MG TABLET PO SCH ×2 (08:35→17:48)
[2018-09-18] MEDS: LOSARTAN POTASSIUM 25 MG TABLET PO SCH (09:00)
[2018-09-18] MEDS: CARVEDILOL 3.125 MG TABLET PO SCH ×2 (09:00→20:47)
[2018-09-18 09:07] LABS: DRVVT LA 65.5 sec (0.0-47.0); PTT-LA 44.9 sec (0.0-51.9)
[2018-09-18] MEDS: SPIRONOLACTONE 25MG TABLET PO SCH ×2 (09:16→17:49)
[2018-09-18] MEDS: FUROSEMIDE 40MG/4ML VIAL IVP SCH ×2 (09:16→17:49)
[2018-09-18] MEDS: POTASSIUM CHLORIDE 20MEQ TABLET SR PO SCH ×2 (09:16→17:48)
[2018-09-18] MEDS: TIMOLOL MALEATE 0.5% OPHTH DROPS 5ML EACHEYE SCH ×2 (09:17→17:49)
[2018-09-18 12:00] VITALS: BP 108/77
[2018-09-18] MEDS ORDERED: POTASSIUM CHLORIDE 20MEQ TABLET SR PO NR (13:15)
[2018-09-18 15:44] VITALS: BP 96/69
[2018-09-18] MEDS: RIVAROXABAN 20 MG TABLET PO SCH (17:48)
[2018-09-18 20:00] VITALS: BP 95/59
[2018-09-18] MEDS: LATANOPROST 0.005% OPHTH DROPS 2.5ML BOTHEYE SCH (21:21)
[2018-09-18] MEDS: MIRTAZAPINE 15MG TABLET PO SCH (21:21)
[2018-09-19] VITALS: BP 94/62
[2018-09-19] MEDS: PIPERACILLIN/TAZ 3.375G PREMIX 50 ML IV SCH ×2 (00:15→05:55)
[2018-09-19 04:00] VITALS: BP 96/60
[2018-09-19] MEDS: BLOOD SUGAR DIAGNOSTIC STRIP TEST SCH ×3 (06:00→17:30)
[2018-09-19 06:05] LABS: BASOPHILS % 0.5 % (0.0-2.0); EOSINOPHILS % 2.4 % (0.0-5.0); HEMATOCRIT. 41.4 % (42.0-52.0); HEMOGLOBIN. 14.2 g/dL (14.0-18.0); LYMPHOCYTES % 30.4 % (20.0-50.0); MEAN CORPUSCULAR HEMOGLOBIN 33.2 pg (28.0-32.0); MEAN CORPUSCULAR VOLUME 96.5 fL (80.0-94.0); MEAN PLATELET VOLUME 11.9 fl (7.4-10.4); MONOCYTES % 10.2 % (2.0-8.0); NEUTROPHILS % 56.5 % (40.0-76.0); PLATELET 87 x1000/uL (130-400); RED BLOOD CELL COUNT 4.29 mill/uL (4.7-6.1)
[2018-09-19] MEDS: INSULIN LISPRO 100 UNITS/ML SUBCUT SCH ×3 (06:40→17:36)
[2018-09-19 08:00] VITALS: BP 98/84
[2018-09-19 08:11] LABS: DRVVT LA CONFIRMATION 0.9 ratio (0.8-1.2); DRVVT MIX LA 55.8 sec (0.0-47.0); LUPUS ANTICOAG INTERPRETATION Comment: (.)
[2018-09-19] MEDS: FUROSEMIDE 40MG/4ML VIAL IVP SCH (08:53)
[2018-09-19] MEDS: TIMOLOL MALEATE 0.5% OPHTH DROPS 5ML EACHEYE SCH ×2 (08:54→17:39)
[2018-09-19] MEDS: POTASSIUM CHLORIDE 20MEQ TABLET SR PO SCH ×2 (08:54→17:39)
[2018-09-19] MEDS: SPIRONOLACTONE 25MG TABLET PO SCH ×2 (08:54→17:39)
[2018-09-19] MEDS: GLIPIZIDE 10MG TABLET PO SCH ×2 (08:56→17:39)
[2018-09-19] MEDS: LOSARTAN POTASSIUM 25 MG TABLET PO SCH (09:00)
[2018-09-19] MEDS: CARVEDILOL 3.125 MG TABLET PO SCH (09:00)
[2018-09-19 12:00] VITALS: BP_SYST 101; BP_SYST 105; BP_SYST 115; BP_DIAS 73; BP_DIAS 76; BP_DIAS 78
[2018-09-19 16:00] VITALS: BP 103/73
[2018-09-19] MEDS: RIVAROXABAN 20 MG TABLET PO SCH (17:00)
[2018-09-19 17:32] LABS: BG CARBOXYHEMOGLOBIN 0.6 % (0.5-1.5); BG FRACTION INSPIRED OXYGEN 21; BG HCO3 ACT 28.5 mmol/L (22.0-26.0); BG METHEMOGLOBIN 0.2 % (0.0-1.5); BG OXYHEMOGLOBIN 96.2 % (94.0-97.0); BG PCO2 38.3 mmHg (35.0-45.0); BG PH 7.489 (7.350-7.450); BG PO2 93.2 mmHg (75.0-100.0); BG SAMPLE SITE RIGHT RADIAL; BG TOTAL HEMOGLOBIN 16.1 g/dL (12.0-18.0); BG VENT MODE VENT - A/C
[2018-09-19 17:52] VITALS: BP 103/73
== END 2018-09-19 18:30 | disposition home health service (06) | DRG 308 ==
LOC: ER 15:41 → 8WST 18:09 → EDBEDREQ 18:12 → ENRESERV 19:53
PROVIDERS: ADMIT Internal Medicine; ATTEND Internal Medicine
DX: I48.1 Persistent atrial fibrillation (principal); I50.23 Acute on chronic systolic (congestive) heart failure; D68.59 Other primary thrombophilia; E87.2 Acidosis; N17.9 Acute kidney failure, unspecified; R18.8 Other ascites; N39.0 Urinary tract infection, site not specified; I11.0 Hypertensive heart disease with heart failure; I48.3 Typical atrial flutter; K74.60 Unspecified cirrhosis of liver; K80.20 Calculus of gallbladder without cholecystitis without obstruction; D69.6 Thrombocytopenia, unspecified; R74.0 Nonspecific elevation of levels of transaminase and lactic acid dehydrogenase [LDH]; I34.0 Nonrheumatic mitral (valve) insufficiency; E11.65 Type 2 diabetes mellitus with hyperglycemia; E80.6 Other disorders of bilirubin metabolism; I25.5 Ischemic cardiomyopathy; E78.5 Hyperlipidemia, unspecified; D53.9 Nutritional anemia, unspecified; D75.89 Other specified diseases of blood and blood-forming organs; E78.00 Pure hypercholesterolemia, unspecified; F17.200 Nicotine dependence, unspecified, uncomplicated; I25.10 Atherosclerotic heart disease of native coronary artery without angina pectoris; J44.9 Chronic obstructive pulmonary disease, unspecified; T50.2X5A Adverse effect of carbonic-anhydrase inhibitors, benzothiadiazides and other diuretics, initial encounter; Z79.01 Long term (current) use of anticoagulants; Z95.1 Presence of aortocoronary bypass graft; Z95.5 Presence of coronary angioplasty implant and graft; Z95.810 Presence of automatic (implantable) cardiac defibrillator; Z79.84 Long term (current) use of oral hypoglycemic drugs; Z79.899 Other long term (current) drug therapy
CPT/HCPCS: 36415; 36600; 71045; 71275; 76700; 78227; 80048; 80061; 80076; 82248; 82375; 82378; 82550; 82553; 82805; 82962; 83605; 83735; 83880; 84439; 84443; 84484; 85049; 85379; 85613; 85732; 86038; 86705; 86709; 86803; 87340; 93005; 93306; 93970; 96374; 97162; 99285; A9537; J1815; J1940; J2543; J7050; Q9967

== ENCOUNTER 2019-01-04 15:45 | Inpatient (IN) | payer MEDICARE ==
[~2019-01-04] VITALS: Ht 172.7 cm; Wt 82.3 kg
[~2019-01-04 15:45] MED LIST changes: +MIRT15TA6 PO
[2019-01-04 16:58] LABS: BASOPHILS % 0.5 % (0.0-2.0); EOSINOPHILS % 0.5 % (0.0-5.0); HEMATOCRIT. 33.8 % (42.0-52.0); HEMOGLOBIN. 11.7 g/dL (14.0-18.0); LYMPHOCYTES % 21.6 % (20.0-50.0); MEAN CORPUSCULAR HEMOGLOBIN 34.8 pg (28.0-32.0); MEAN CORPUSCULAR VOLUME 100.4 fL (80.0-94.0); MEAN PLATELET VOLUME 10.6 fl (7.4-10.4); MONOCYTES % 7.3 % (2.0-8.0); NEUTROPHILS % 70.1 % (40.0-76.0); PLATELET 113 x1000/uL (130-400); RED BLOOD CELL COUNT 3.36 mill/uL (4.7-6.1)
[2019-01-04 17:06] LABS: CHLORIDE 96 mEq/L (98-107)
[2019-01-04 17:07] LABS: INR 1.5; PARTIAL THROMBOPLASTIN TIME 35.9 sec (23.4-31.0); PROTHROMBIN TIME 14.8 sec (9.6-11.0)
[2019-01-04] MEDS ORDERED: CALCIUM CHLORIDE 1GM/10ML SYR IV ONE ×2 (17:30→18:45)
[2019-01-04] MEDS ORDERED: SODIUM BICARBONATE 8.4% 1 MEQ/ML 50ML SYR IV ONE (17:30)
[2019-01-04] MEDS ORDERED: INSULIN REGULAR (HUMULIN R) 300UNITS/3ML IV ONE (17:30)
[2019-01-04] MEDS ORDERED: DEXTROSE 50% WATER 50ML SYRINGE IV ONE (17:30)
[2019-01-04] MEDS ORDERED: ALBUTEROL (0.083%) 2.5MG/3ML NEB HHN ONE (17:30)
[2019-01-04] MEDS ORDERED: SODIUM CHLORIDE 0.9% 1,000 ML IV ONE (17:31)
[2019-01-04 18:43] LABS: CLARITY URINE CLEAR (CLEAR); COLOR URINE YELLOW (YELLOW); KETONES URINE TRACE (NEGATIVE); LEUKOCYTE ESTERASE URINE NEGATIVE (NEGATIVE); NITRITE URINE NEGATIVE (NEGATIVE); OCCULT BLOOD URINE NEGATIVE (NEGATIVE); PROTEIN URINE NEGATIVE (NEGATIVE); SPECIFIC GRAVITY URINE 1.013 (1.005-1.030); UROBILINOGEN URINE 0.2 E.U./dL (0.2-1.0)
[2019-01-04 18:54] LABS: *AMPHETAMINES SCREEN URINE NEGATIVE (NEGATIVE); *BARBITURATES SCREEN URINE NEGATIVE (NEGATIVE); *BENZODIAZEPINES SCREEN URINE NEGATIVE (NEGATIVE); *COCAINE SCREEN URINE NEGATIVE (NEGATIVE); METHADONE URINE SCREEN NEGATIVE (NEGATIVE); OPIATES URINE SCREEN NEGATIVE (NEGATIVE)
[2019-01-04 18:55] LABS: CANNABINOID URINE SCREEN NEGATIVE (NEGATIVE); PHENCYCLIDINE URINE SCREEN NEGATIVE (NEGATIVE)
[2019-01-04] MEDS ORDERED: ACETAMINOPHEN 325MG TABLET PO PRN (20:45)
[2019-01-04] MEDS ORDERED: ONDANSETRON HCL 4MG/2ML INJ IV PRN (20:45)
[2019-01-04] MEDS ORDERED: DEXTROSE 50% WATER 50ML SYRINGE IV NR (21:08)
[2019-01-04] MEDS ORDERED: SODIUM BICARBONATE 8.4% 1 MEQ/ML 50ML SYR IV NR (21:09)
[2019-01-04] MEDS ORDERED: SODIUM BICARBONATE 5MEQ SYR 50 MEQ in DEXT 5%/0.45% NACL 1000ML 1,000 ML IV SCH (22:00)
[2019-01-04] MEDS ORDERED: INSULIN REGULAR (HUMULIN R) 300UNITS/3ML IV NR (22:00)
[2019-01-04] MEDS ORDERED: SODIUM POLYSTYRENE SULFONATE 15 G/60 ML BOT PO NR (22:00)
[2019-01-04 22:30] VITALS: BP_SYST 107; BP_SYST 99; BP_DIAS 44; BP_DIAS 56
[2019-01-04] MEDS ORDERED: INSULIN REGULAR (HUMULIN R) UD 100 UNITS/ML SYR IV NR (22:30)
[2019-01-04] MEDS: BLOOD SUGAR DIAGNOSTIC STRIP TEST SCH ×2 (22:45→22:54)
[2019-01-04 23:00] VITALS: BP 106/48
[2019-01-04] MEDS ORDERED: INSULIN LISPRO 100 UNITS/ML SUBCUT SCH (23:00)
[2019-01-04 23:30] VITALS: BP 105/53
[2019-01-05] VITALS (41 sets, daily range): BP systolic 71–123; BP diastolic 39–84
[2019-01-05] MEDS: INSULIN LISPRO 100 UNITS/ML SUBCUT SCH ×7 (00:16→23:48)
[2019-01-05] MEDS: BLOOD SUGAR DIAGNOSTIC STRIP TEST SCH ×7 (00:18→23:43)
[2019-01-05 00:39] LABS: CREATINE KINASE 37 IU/L (39-308)
[2019-01-05] MEDS: DILTIAZEM HCL 30MG TABLET PO SCH ×2 (02:59→09:00)
[2019-01-05 05:28] LABS: BASOPHILS % 0.2 % (0.0-2.0); EOSINOPHILS % 0.8 % (0.0-5.0); HEMATOCRIT. 30.4 % (42.0-52.0); HEMOGLOBIN. 10.5 g/dL (14.0-18.0); LYMPHOCYTES % 26.1 % (20.0-50.0); MEAN CORPUSCULAR HEMOGLOBIN 34.6 pg (28.0-32.0); MEAN CORPUSCULAR VOLUME 100.3 fL (80.0-94.0); MEAN PLATELET VOLUME 10.8 fl (7.4-10.4); MONOCYTES % 8.5 % (2.0-8.0); NEUTROPHILS % 64.4 % (40.0-76.0); PLATELET 93 x1000/uL (130-400); RED BLOOD CELL COUNT 3.03 mill/uL (4.7-6.1); RED CELL DISTRIBUTION WIDTH 13.8 % (11.6-14.6)
[2019-01-05 05:35] LABS: CHLORIDE 101 mEq/L (98-107)
[2019-01-05] MEDS ORDERED: METOPROLOL TARTRATE 50MG TABLET PO NR (05:45)
[2019-01-05 05:51] LABS: LDL CHOLESTEROL 52 mg/dL (5-100); T4 FREE 1.36 ng/dL (0.76-1.46)
[2019-01-05 05:52] LABS: CREATINE KINASE 35 IU/L (39-308)
[2019-01-05 05:53] LABS: HDL CHOLESTEROL 30 mg/dL (40-59)
[2019-01-05] MEDS ORDERED: INSULIN LISPRO 100 UNITS/ML SUBCUT SCH ×2 (08:20→21:00)
[2019-01-05] MEDS ORDERED: DIGOXIN 500MCG/2ML AMP IV NR ×3 (08:30→14:00)
[2019-01-05] MEDS ORDERED: APIXABAN 5 MG TABLET PO SCH (09:00)
[2019-01-05] MEDS ORDERED: METOPROLOL TARTRATE 50MG TABLET PO SCH (09:00)
[2019-01-05 10:59] LABS: PHOSPHORUS 4.1 mg/dL (2.5-4.9)
[2019-01-05 11:04] LABS: CREATINE KINASE MB FRACTION 1.1 ng/mL (0.5-3.6)
[2019-01-05 12:29] LABS: BG BASE EXCESS -2.6 mmol/L (-2.0-2.0); BG CARBOXYHEMOGLOBIN 0.3 % (0.5-1.5); BG DEOXYHEMOGLOBIN 5.1 % (0.0-5.0); BG FRACTION INSPIRED OXYGEN 21; BG HCO3 ACT 21.8 mmol/L (22.0-26.0); BG OXYGEN SATURATION 94.9 % (92.0-98.5); BG OXYHEMOGLOBIN 94.6 % (94.0-97.0); BG PCO2 36.5 mmHg (35.0-45.0); BG PH 7.395 (7.350-7.450); BG SAMPLE SITE RIGHT RADIAL; BG TOTAL HEMOGLOBIN 11.5 g/dL (12.0-18.0); BG VENT MODE ROOM AIR
[2019-01-05] MEDS ORDERED: DILTIAZEM HCL 5MG/ML 5ML VIAL IV NR (13:45)
[2019-01-05] MEDS: CARVEDILOL 3.125 MG TABLET PO SCH (13:59)
[2019-01-05] MEDS ORDERED: DILTIAZEM HCL 30MG TABLET PO SCH (15:00)
[2019-01-05] MEDS ORDERED: AMIODARONE HCL 150 MG in DEXT 5% WATER 100 ML IV ONE (15:00)
[2019-01-05] MEDS ORDERED: LIDOCAINE HCL 2% 5ML SYRINGE IV ONE (15:00)
[2019-01-05] MEDS ORDERED: DIPHENHYDRAMINE 50MG/ML VIAL IV PRN (15:30)
[2019-01-05] MEDS ORDERED: HYDROCODONE/ACETAMINOPHEN 5/325MG TABLET PO PRN (15:30)
[2019-01-05] MEDS ORDERED: LORAZEPAM 2MG/ML CPJ IV PRN (15:30)
[2019-01-05] MEDS ORDERED: MORPHINE SULFATE 2 MG/ML CPJ (NOT FOR IM USE) IV PRN (15:30)
[2019-01-05] MEDS ORDERED: HYDRALAZINE 20MG/ML VIAL IV PRN (15:30)
[2019-01-05] MEDS: DEXT 5%/0.45% NACL 1000ML 1,000 ML IV SCH (16:48)
[2019-01-05] MEDS ORDERED: AMIODARONE HCL 900 MG in DEXT 5% WATER 482 ML IV PRN (17:30)
[2019-01-05] MEDS ORDERED: DEXTROSE 50% WATER 50ML SYRINGE IV PRN (20:00)
[2019-01-05] MEDS ORDERED: LACTULOSE 20G/30ML UDC PO PRN (21:00)
[2019-01-06] VITALS (70 sets, daily range): BP systolic 86–141; BP diastolic 51–84
[2019-01-06] MEDS ORDERED: LIDOCAINE HCL/PF 1% 10 MG/ML 5ML VIAL ONE (02:56)
[2019-01-06] MEDS ORDERED: ETOMIDATE 2MG/ML 10ML VIAL IV ONE (02:56)
[2019-01-06] MEDS: INSULIN LISPRO 100 UNITS/ML SUBCUT SCH ×6 (04:00→23:15)
[2019-01-06] MEDS: BLOOD SUGAR DIAGNOSTIC STRIP TEST SCH ×6 (04:00→23:15)
[2019-01-06 05:42] LABS: BASOPHILS % 0.4 % (0.0-2.0); EOSINOPHILS % 1.1 % (0.0-5.0); HEMATOCRIT. 29.2 % (42.0-52.0); HEMOGLOBIN. 10.2 g/dL (14.0-18.0); LYMPHOCYTES % 25.6 % (20.0-50.0); MEAN CORPUSCULAR HEMOGLOBIN 35.2 pg (28.0-32.0); MEAN PLATELET VOLUME 10.8 fl (7.4-10.4); MONOCYTES % 8.4 % (2.0-8.0); NEUTROPHILS % 64.5 % (40.0-76.0); PLATELET 87 x1000/uL (130-400); RED BLOOD CELL COUNT 2.89 mill/uL (4.7-6.1); RED CELL DISTRIBUTION WIDTH 13.5 % (11.6-14.6)
[2019-01-06] MEDS: CARVEDILOL 3.125 MG TABLET PO SCH (08:43)
[2019-01-06] MEDS: DEXT 5%/0.45% NACL 1000ML 1,000 ML IV SCH ×2 (12:13→16:04)
[2019-01-06] MEDS: AMIODARONE HCL 200 MG TABLET PO SCH ×2 (13:55→20:25)
[2019-01-07] VITALS (62 sets, daily range): BP systolic 83–141; BP diastolic 35–95
[2019-01-07] MEDS: INSULIN LISPRO 100 UNITS/ML SUBCUT SCH ×5 (04:00→20:29)
[2019-01-07] MEDS: BLOOD SUGAR DIAGNOSTIC STRIP TEST SCH ×5 (04:12→20:00)
[2019-01-07 04:24] LABS: CHLORIDE 103 mEq/L (98-107)
[2019-01-07 04:25] LABS: BASOPHILS % 0.3 % (0.0-2.0); EOSINOPHILS % 1.9 % (0.0-5.0); HEMATOCRIT. 33.1 % (42.0-52.0); HEMOGLOBIN. 11.6 g/dL (14.0-18.0); LYMPHOCYTES % 29.7 % (20.0-50.0); MEAN CORPUSCULAR HEMOGLOBIN 34.9 pg (28.0-32.0); MEAN CORPUSCULAR VOLUME 100.1 fL (80.0-94.0); MEAN PLATELET VOLUME 10.7 fl (7.4-10.4); MONOCYTES % 7.8 % (2.0-8.0); NEUTROPHILS % 60.3 % (40.0-76.0); PLATELET 86 x1000/uL (130-400); RED BLOOD CELL COUNT 3.31 mill/uL (4.7-6.1); RED CELL DISTRIBUTION WIDTH 13.7 % (11.6-14.6)
[2019-01-07] MEDS: AMIODARONE HCL 200 MG TABLET PO SCH ×2 (09:30→20:28)
[2019-01-07] MEDS: CARVEDILOL 3.125 MG TABLET PO SCH (09:32)
[2019-01-07] MEDS: DEXT 5%/0.45% NACL 1000ML 1,000 ML IV SCH (09:36)
[2019-01-07] MEDS ORDERED: IPRATROPIUM/ALBUTEROL 0.5-3(2.5)MG/3ML NEB HHN PRN (15:30)
[2019-01-07] MEDS: RIVAROXABAN 15 MG TABLET PO SCH (18:03)
[2019-01-08] VITALS (10 sets, daily range): BP systolic 93–133; BP diastolic 42–68
[2019-01-08] MEDS: INSULIN LISPRO 100 UNITS/ML SUBCUT SCH ×5 (00:36→16:26)
[2019-01-08] MEDS: BLOOD SUGAR DIAGNOSTIC STRIP TEST SCH ×5 (04:00→15:53)
[2019-01-08] MEDS: DEXT 5%/0.45% NACL 1000ML 1,000 ML IV SCH (05:51)
[2019-01-08 07:23] LABS: BASOPHILS % 0.3 % (0.0-2.0); EOSINOPHILS % 2.4 % (0.0-5.0); HEMATOCRIT. 30.6 % (42.0-52.0); HEMOGLOBIN. 10.7 g/dL (14.0-18.0); MEAN CORPUSCULAR HEMOGLOBIN 34.7 pg (28.0-32.0); MEAN CORPUSCULAR VOLUME 99.5 fL (80.0-94.0); MEAN PLATELET VOLUME 10.6 fl (7.4-10.4); MONOCYTES % 8.8 % (2.0-8.0); NEUTROPHILS % 56.5 % (40.0-76.0); PLATELET 94 x1000/uL (130-400); RED BLOOD CELL COUNT 3.07 mill/uL (4.7-6.1); RED CELL DISTRIBUTION WIDTH 13.4 % (11.6-14.6)
[2019-01-08 07:24] LABS: CHLORIDE 104 mEq/L (98-107)
[2019-01-08] MEDS ORDERED: FUROSEMIDE 20MG TABLET PO SCH (09:00)
[2019-01-08] MEDS: CARVEDILOL 3.125 MG TABLET PO SCH (09:14)
[2019-01-08] MEDS: AMIODARONE HCL 200 MG TABLET PO SCH (09:14)
[2019-01-08] MEDS: RIVAROXABAN 15 MG TABLET PO SCH (16:25)
== END 2019-01-08 18:03 | disposition home or self-care (01) | DRG 682 ==
LOC: ER 15:45 → EDBEDREQTM 17:52 → EDBEDREQ 17:52 → CVICU 18:32 → EDBEDREQ 18:40 → EDBEDREQSVC 18:40 → EDBEDREQTM 18:40 → ENRESERV 19:45 → 3WST 01-07 20:16
PROVIDERS: ADMIT Internal Medicine; ATTEND Internal Medicine
PROC: 5A2204Z Restoration of Cardiac Rhythm, Single (ICD-10-PCS; principal; 2019-01-06)
DX: N17.0 Acute kidney failure with tubular necrosis (principal); I50.23 Acute on chronic systolic (congestive) heart failure; I48.1 Persistent atrial fibrillation; D68.59 Other primary thrombophilia; D69.3 Immune thrombocytopenic purpura; I13.0 Hypertensive heart and chronic kidney disease with heart failure and stage 1 through stage 4 chronic kidney disease, or unspecified chronic kidney disease; I47.2 Ventricular tachycardia; I48.3 Typical atrial flutter; D63.8 Anemia in other chronic diseases classified elsewhere; I25.5 Ischemic cardiomyopathy; N18.9 Chronic kidney disease, unspecified; E78.5 Hyperlipidemia, unspecified; E86.0 Dehydration; E87.5 Hyperkalemia; E11.22 Type 2 diabetes mellitus with diabetic chronic kidney disease; I27.20 Pulmonary hypertension, unspecified; E78.00 Pure hypercholesterolemia, unspecified; I25.10 Atherosclerotic heart disease of native coronary artery without angina pectoris; K74.60 Unspecified cirrhosis of liver; I95.9 Hypotension, unspecified; I34.0 Nonrheumatic mitral (valve) insufficiency; R33.9 Retention of urine, unspecified; K80.20 Calculus of gallbladder without cholecystitis without obstruction; Z79.01 Long term (current) use of anticoagulants; I25.2 Old myocardial infarction; Z79.4 Long term (current) use of insulin; Z79.899 Other long term (current) drug therapy; Z95.1 Presence of aortocoronary bypass graft; Z95.810 Presence of automatic (implantable) cardiac defibrillator; Z90.49 Acquired absence of other specified parts of digestive tract
CPT/HCPCS: 36415; 36600; 71045; 76700; 80048; 80061; 80076; 80162; 80305; 81003; 82375; 82378; 82550; 82553; 82805; 82962; 83036; 83735; 83880; 84100; 84439; 84443; 84484; 86850; 86900; 93005; 93306; 93970; 94640; 96374; 96375; 99285; J0282; J1160; J1815; J3490; J7030; J7040; J7042; J7060; J7611; A4315

== ENCOUNTER 2019-01-23 16:47 | Inpatient (IN) | payer MEDICARE ==
[~2019-01-23] VITALS: Ht 167.6 cm; Wt 86.2 kg
[~2019-01-23 16:47] MED LIST changes: -GLIP10TA10 PO; -METF-416 PO
[2019-01-23] MEDS ORDERED: SODIUM CHLORIDE 0.9% 1,000 ML IV ONE (17:03)
[2019-01-23] MEDS ORDERED: SODIUM CHLORIDE 0.9% 1000ML BAG (SEPSIS BOLUS) IV ONE (17:15)
[2019-01-23 17:31] LABS: HEMATOCRIT. 31.3 % (42.0-52.0); HEMOGLOBIN. 10.4 g/dL (14.0-18.0); MEAN CORPUSCULAR HEMOGLOBIN 34.7 pg (28.0-32.0); MEAN CORPUSCULAR VOLUME 104.3 fL (80.0-94.0); MEAN PLATELET VOLUME 10.3 fl (7.4-10.4); PLATELET 115 x1000/uL (130-400); RED CELL DISTRIBUTION WIDTH 14.3 % (11.6-14.6)
[2019-01-23 17:38] LABS: CHLORIDE 94 mEq/L (98-107)
[2019-01-23 17:38] LABS: CLARITY URINE TURBID (CLEAR); COLOR URINE YELLOW (YELLOW); KETONES URINE NEGATIVE (NEGATIVE); LEUKOCYTE ESTERASE URINE 1+ (NEGATIVE); NITRITE URINE POSITIVE (NEGATIVE); OCCULT BLOOD URINE 2+ (NEGATIVE); PROTEIN URINE TRACE (NEGATIVE); SPECIFIC GRAVITY URINE 1.021 (1.005-1.030); UROBILINOGEN URINE 0.2 E.U./dL (0.2-1.0)
[2019-01-23 18:14] LABS: PLATELET ESTIMATE DECREASED
[2019-01-23] MEDS ORDERED: ACETAMINOPHEN 325MG TABLET PO ONE (18:30)
[2019-01-23] MEDS ORDERED: VANCOMYCIN 1 G PREMIX 200 ML IV ONE (18:30)
[2019-01-23] MEDS ORDERED: PIPERACILLIN/TAZ 3.375G PREMIX 50 ML IV ONE (18:30)
[2019-01-23 22:15] VITALS: BP_SYST 103; BP_SYST 107; BP_DIAS 53; BP_DIAS 57
[2019-01-24] VITALS (8 sets, daily range): BP systolic 106–126; BP diastolic 50–88
[2019-01-24] MEDS ORDERED: DEXTROSE 50% WATER 50ML SYRINGE IV PRN (00:30)
[2019-01-24] MEDS ORDERED: ACETAMINOPHEN 325MG TABLET PO PRN (00:30)
[2019-01-24] MEDS ORDERED: INSNPH SUBCUT (00:34)
[2019-01-24] MEDS ORDERED: AMIO100T4 PO (00:36)
[2019-01-24] MEDS ORDERED: FURO40SO PO (00:36)
[2019-01-24] MEDS: VANCOMYCIN 1 G PREMIX 200 ML IV SCH ×2 (02:58→16:17)
[2019-01-24] MEDS: PIPERACILLIN/TAZOBACTAM 3.375 G in DEXT 5% WATER 100 ML IV SCH ×4 (02:58→21:35)
[2019-01-24] MEDS ORDERED: PIPERACILLIN/TAZOBACTAM 2.25 G in DEXTROSE 5% WATER 50 ML IV SCH (03:00)
[2019-01-24] MEDS: BLOOD SUGAR DIAGNOSTIC STRIP TEST SCH ×4 (06:10→21:36)
[2019-01-24] MEDS: PANTOPRAZOLE 40MG DR TABLET PO SCH (06:10)
[2019-01-24] MEDS: INSULIN LISPRO 100 UNITS/ML SUBCUT SCH ×4 (06:13→21:45)
[2019-01-24 06:47] LABS: BASOPHILS % 0.2 % (0.0-2.0); EOSINOPHILS % 0.3 % (0.0-5.0); HEMATOCRIT. 24.5 % (42.0-52.0); HEMOGLOBIN. 8.5 g/dL (14.0-18.0); LYMPHOCYTES % 9.8 % (20.0-50.0); MEAN CORPUSCULAR HEMOGLOBIN 35.3 pg (28.0-32.0); MEAN CORPUSCULAR VOLUME 102.2 fL (80.0-94.0); MEAN PLATELET VOLUME 10.7 fl (7.4-10.4); MONOCYTES % 7.7 % (2.0-8.0); PLATELET 103 x1000/uL (130-400); RED CELL DISTRIBUTION WIDTH 14.2 % (11.6-14.6)
[2019-01-24 06:48] LABS: CHLORIDE 102 mEq/L (98-107)
[2019-01-24] MEDS: TIMOLOL MALEATE 0.5% OPHTH DROPS 5ML EACHEYE SCH ×2 (09:08→17:05)
[2019-01-24] MEDS: FUROSEMIDE 40MG TABLET PO SCH ×2 (09:08→21:35)
[2019-01-24] MEDS: AMIODARONE HCL 200 MG TABLET PO SCH ×2 (09:08→21:35)
[2019-01-24 13:26] LABS: HEMATOCRIT 24.5 % (42.0-52.0); HEMOGLOBIN 8.3 g/dL (14.0-18.0)
[2019-01-24] MEDS ORDERED: LACTULOSE 20G/30ML UDC PO PRN (14:30)
[2019-01-24] MEDS ORDERED: HYDRALAZINE 20MG/ML VIAL IV PRN (14:30)
[2019-01-24] MEDS ORDERED: LORAZEPAM 2MG/ML CPJ IV PRN (14:30)
[2019-01-24] MEDS ORDERED: HYDROCODONE/ACETAMINOPHEN 5/325MG TABLET PO PRN (14:30)
[2019-01-24] MEDS ORDERED: DIPHENHYDRAMINE 50MG/ML VIAL IV PRN (14:30)
[2019-01-24] MEDS ORDERED: ONDANSETRON HCL 4MG/2ML INJ IV PRN (14:30)
[2019-01-24] MEDS: RIVAROXABAN 15 MG TABLET PO SCH (17:05)
[2019-01-24] MEDS ORDERED: FUROSEMIDE 40MG/4ML VIAL IVP SCH (18:00)
[2019-01-24] MEDS ORDERED: INSULIN NPH (HUMULIN-N) 100 UNITS/ML 3ML VIAL SUBCUT SCH (21:00)
[2019-01-24] MEDS: ATORVASTATIN CALCIUM 20MG TABLET PO SCH (21:35)
[2019-01-24] MEDS: MIRTAZAPINE 15MG TABLET PO SCH (21:35)
[2019-01-24] MEDS: LATANOPROST 0.005% OPHTH DROPS 2.5ML BOTHEYE SCH (21:36)
[2019-01-24] MEDS: INSULIN GLARGINE UD 100 UNITS/ML SYR SUBCUT SCH (21:45)
[2019-01-25] VITALS (8 sets, daily range): BP systolic 100–131; BP diastolic 52–66
[2019-01-25] MEDS: PIPERACILLIN/TAZOBACTAM 3.375 G in DEXT 5% WATER 100 ML IV SCH ×4 (02:49→23:34)
[2019-01-25] MEDS: VANCOMYCIN 1 G PREMIX 200 ML IV SCH (03:44)
[2019-01-25] MEDS: PANTOPRAZOLE 40MG DR TABLET PO SCH (06:34)
[2019-01-25] MEDS: BLOOD SUGAR DIAGNOSTIC STRIP TEST SCH ×4 (06:37→21:00)
[2019-01-25] MEDS: INSULIN LISPRO 100 UNITS/ML SUBCUT SCH ×4 (06:41→23:14)
[2019-01-25 06:46] LABS: HEMOGLOBIN 10.2 g/dL (14.0-18.0); MEAN CORPUSCULAR HEMOGLOBIN 33.9 pg (28.0-32.0); MEAN CORPUSCULAR VOLUME 99.4 fL (80.0-94.0); PLATELET 115 x1000/uL (130-400); RED BLOOD CELL COUNT 3.02 mill/uL (4.7-6.1)
[2019-01-25 07:09] LABS: CHLORIDE 98 mEq/L (98-107)
[2019-01-25] MEDS: FUROSEMIDE 40MG TABLET PO SCH ×2 (08:15→23:02)
[2019-01-25] MEDS: AMIODARONE HCL 200 MG TABLET PO SCH ×2 (08:15→23:01)
[2019-01-25] MEDS: TIMOLOL MALEATE 0.5% OPHTH DROPS 5ML EACHEYE SCH ×2 (08:16→17:30)
[2019-01-25] MEDS ORDERED: INSULIN GLARGINE UD 100 UNITS/ML SYR SUBCUT SCH (10:00)
[2019-01-25] MEDS ORDERED: POTASSIUM CHLORIDE 20MEQ TABLET SR PO NR (11:00)
[2019-01-25] MEDS: VANCOMYCIN 750 MG PREMIX 150 ML IV SCH (18:08)
[2019-01-25] MEDS: TAMSULOSIN HCL 0.4MG SR CAPSULE PO SCH (18:08)
[2019-01-25] MEDS: RIVAROXABAN 15 MG TABLET PO SCH (18:08)
[2019-01-25] MEDS: MIRTAZAPINE 15MG TABLET PO SCH (23:01)
[2019-01-25] MEDS: ATORVASTATIN CALCIUM 20MG TABLET PO SCH (23:02)
[2019-01-25] MEDS: LATANOPROST 0.005% OPHTH DROPS 2.5ML BOTHEYE SCH (23:03)
[2019-01-25] MEDS: INSULIN GLARGINE UD 100 UNITS/ML SYR SUBCUT SCH (23:14)
[2019-01-26] MEDS: PIPERACILLIN/TAZOBACTAM 3.375 G in DEXT 5% WATER 100 ML IV SCH ×3 (01:40→14:02)
[2019-01-26] MEDS: PANTOPRAZOLE 40MG DR TABLET PO SCH ×2 (06:05→06:08)
[2019-01-26] MEDS: VANCOMYCIN 750 MG PREMIX 150 ML IV SCH ×2 (06:05→17:21)
[2019-01-26] MEDS: INSULIN LISPRO 100 UNITS/ML SUBCUT SCH ×3 (06:06→17:21)
[2019-01-26] MEDS: BLOOD SUGAR DIAGNOSTIC STRIP TEST SCH ×3 (06:06→17:10)
[2019-01-26 06:37] LABS: HEMATOCRIT. 32.5 % (42.0-52.0); HEMOGLOBIN. 11.3 g/dL (14.0-18.0); MEAN CORPUSCULAR VOLUME 97.9 fL (80.0-94.0); MEAN PLATELET VOLUME 10.4 fl (7.4-10.4); PLATELET 130 x1000/uL (130-400); RED BLOOD CELL COUNT 3.32 mill/uL (4.7-6.1); RED CELL DISTRIBUTION WIDTH 16.2 % (11.6-14.6)
[2019-01-26 07:01] LABS: CHLORIDE 95 mEq/L (98-107)
[2019-01-26 08:00] VITALS: BP 116/61
[2019-01-26] MEDS: AMIODARONE HCL 200 MG TABLET PO SCH (09:40)
[2019-01-26] MEDS: FUROSEMIDE 40MG TABLET PO SCH (09:40)
[2019-01-26] MEDS: TAMSULOSIN HCL 0.4MG SR CAPSULE PO SCH ×2 (09:41→17:21)
[2019-01-26] MEDS: TIMOLOL MALEATE 0.5% OPHTH DROPS 5ML EACHEYE SCH ×2 (09:41→17:22)
[2019-01-26] MEDS ORDERED: INSULIN GLARGINE UD 100 UNITS/ML SYR SUBCUT SCH (10:00)
[2019-01-26 12:00] VITALS: BP 112/58
[2019-01-26] MEDS ORDERED: POTASSIUM CHLORIDE INJ 40 MEQ in DEXT 5% WATER 230 ML IV NR (12:30)
[2019-01-26 16:00] VITALS: BP 116/64
[2019-01-26 17:02] LABS: PLATELET ESTIMATE NORMAL
[2019-01-26] MEDS: RIVAROXABAN 15 MG TABLET PO SCH (17:21)
[2019-01-26 17:59] VITALS: BP 112/58
== END 2019-01-26 19:30 | disposition home or self-care (01) | DRG 872 ==
LOC: ER 18:17 → EDBEDREQSVC 18:58 → EDBEDREQ 18:58 → ENRESERV 21:36 → 8WST 22:24
PROVIDERS: ADMIT Internal Medicine; ATTEND Internal Medicine
PROC: 30233N1 Transfusion of Nonautologous Red Blood Cells into Peripheral Vein, Percutaneous Approach (ICD-10-PCS; principal; 2019-01-24)
DX: A41.9 Sepsis, unspecified organism (principal); N39.0 Urinary tract infection, site not specified; K74.60 Unspecified cirrhosis of liver; I48.91 Unspecified atrial fibrillation; K80.20 Calculus of gallbladder without cholecystitis without obstruction; D64.9 Anemia, unspecified; D69.6 Thrombocytopenia, unspecified; E11.65 Type 2 diabetes mellitus with hyperglycemia; E78.00 Pure hypercholesterolemia, unspecified; E86.0 Dehydration; R31.9 Hematuria, unspecified; I10 Essential (primary) hypertension; R33.9 Retention of urine, unspecified; I25.10 Atherosclerotic heart disease of native coronary artery without angina pectoris; N41.9 Inflammatory disease of prostate, unspecified; Z79.01 Long term (current) use of anticoagulants; Z79.4 Long term (current) use of insulin; Z95.1 Presence of aortocoronary bypass graft; Z79.899 Other long term (current) drug therapy; Z95.810 Presence of automatic (implantable) cardiac defibrillator; B96.1 Klebsiella pneumoniae [K. pneumoniae] as the cause of diseases classified elsewhere
CPT/HCPCS: 36415; 71045; 74176; 80048; 80202; 81003; 82962; 83605; 84153; 84484; 85014; 85018; 85027; 86850; 86900; 86920; 87077; 87186; 87804; 93005; 97162; 99291; J1815; J1940; J2543; J3370; J3480; J7030; J7040; J7060; P9016; A4315; G0103

== ENCOUNTER 2020-07-06 11:47 | Inpatient (IN) | payer MEDICARE, MEDICAID ==
[~2020-07-06] VITALS: Ht 172.7 cm; Wt 85.8 kg
[~2020-07-06 11:47] MED LIST changes: +AMIO100T4 PO; +FURO40SO PO; +INSNPH SUBCUT; +LATA2.5D14 BOTHEYE; -LATA2.5D2 BOTHEYE; -NPH,100V11 SQ
[2020-07-06] MEDS ORDERED: DILTIAZEM HCL 5MG/ML 5ML VIAL IV ONE (12:30)
[2020-07-06 12:41] LABS: BASOPHILS % 0.4 % (0.0-2.0); EOSINOPHILS % 1.3 % (0.0-5.0); HEMATOCRIT. 40.8 % (42.0-52.0); HEMOGLOBIN. 13.3 g/dL (14.0-18.0); LYMPHOCYTES % 24.3 % (20.0-50.0); MEAN CORPUSCULAR HEMOGLOBIN 32.2 pg (28.0-32.0); MEAN CORPUSCULAR VOLUME 99.1 fL (80.0-94.0); MEAN PLATELET VOLUME 11.8 fl (7.4-10.4); MONOCYTES % 6.9 % (2.0-8.0); NEUTROPHILS % 67.1 % (40.0-76.0); PLATELET 91 x1000/uL (130-400); RED BLOOD CELL COUNT 4.12 mill/uL (4.7-6.1); RED CELL DISTRIBUTION WIDTH 13.5 % (11.6-14.6)
[2020-07-06 12:46] LABS: CHLORIDE 104 mEq/L (98-107)
[2020-07-06] MEDS ORDERED: FUROSEMIDE 20MG/2ML VIAL IVP SCH (13:45)
[2020-07-06] MEDS ORDERED: DOCUSATE SODIUM 100MG CAPSULE PO PRN (14:15)
[2020-07-06] MEDS ORDERED: IPRATROPIUM/ALBUTEROL 0.5-3(2.5)MG/3ML NEB NEB PRN (14:15)
[2020-07-06] MEDS ORDERED: GUAIFENESIN 200MG/10ML SUGAR FREE UDC PO PRN (14:15)
[2020-07-06] MEDS ORDERED: MAGNESIUM/ALUMINUM HYDROXIDE/SIMETHICONE 30ML UDC PO PRN (14:15)
[2020-07-06] MEDS ORDERED: DIPHENHYDRAMINE 50MG/ML VIAL IV PRN (14:15)
[2020-07-06] MEDS ORDERED: DEXTROSE 50% WATER 50ML SYRINGE IV PRN (14:15)
[2020-07-06] MEDS ORDERED: ACETAMINOPHEN 650MG SUPP PR PRN (14:15)
[2020-07-06] MEDS ORDERED: LORAZEPAM 0.5MG TABLET PO PRN (14:15)
[2020-07-06] MEDS ORDERED: NA PHOS,M-B/NA PHOS,DI-BA ENEMA 118ML PR PRN (14:15)
[2020-07-06] MEDS ORDERED: HYDROCODONE/ACETAMINOPHEN 5/325MG TABLET PO PRN (14:15)
[2020-07-06] MEDS ORDERED: CLONIDINE 0.1MG TABLET PO PRN (14:15)
[2020-07-06] MEDS ORDERED: ONDANSETRON HCL 4MG/2ML INJ IV PRN (14:15)
[2020-07-06] MEDS ORDERED: ACETAMINOPHEN 325MG TABLET PO PRN (14:15)
[2020-07-06] MEDS: ENOXAPARIN 80MG/0.8ML SYR SUBCUT SCH (14:30)
[2020-07-06 14:34] LABS: INR 1.6; PROTHROMBIN TIME 16.9 sec (9.6-11.0)
[2020-07-06 17:31] LABS: INR 1.6; PROTHROMBIN TIME 16.7 sec (9.6-11.0)
[2020-07-06] MEDS: BLOOD SUGAR DIAGNOSTIC STRIP TEST SCH ×2 (18:10→20:44)
[2020-07-06] MEDS: INSULIN LISPRO 100 UNITS/ML SUBCUT SCH ×2 (18:20→20:44)
[2020-07-06] MEDS: CARVEDILOL 6.25 MG TABLET PO SCH (20:42)
[2020-07-06] MEDS: ATORVASTATIN CALCIUM 20MG TABLET PO SCH (20:42)
[2020-07-06] MEDS: FAMOTIDINE 20MG TABLET PO SCH (20:42)
[2020-07-06 22:40] VITALS: BP 122/86
[2020-07-07] MEDS: ENOXAPARIN 80MG/0.8ML SYR SUBCUT SCH ×2 (00:46→14:12)
[2020-07-07 00:47] LABS: CREATINE KINASE MB FRACTION 1.1 ng/mL (0.5-3.6)
[2020-07-07 04:00] VITALS: BP 125/84
[2020-07-07 06:04] LABS: BASOPHILS % 0.2 % (0.0-2.0); EOSINOPHILS % 1.3 % (0.0-5.0); HEMATOCRIT. 36.2 % (42.0-52.0); HEMOGLOBIN. 12.2 g/dL (14.0-18.0); LYMPHOCYTES % 30.5 % (20.0-50.0); MEAN CORPUSCULAR HEMOGLOBIN 32.9 pg (28.0-32.0); MEAN CORPUSCULAR VOLUME 97.3 fL (80.0-94.0); MEAN PLATELET VOLUME 12.2 fl (7.4-10.4); MONOCYTES % 8.3 % (2.0-8.0); NEUTROPHILS % 59.7 % (40.0-76.0); PLATELET 73 x1000/uL (130-400); RED BLOOD CELL COUNT 3.72 mill/uL (4.7-6.1); RED CELL DISTRIBUTION WIDTH 13.4 % (11.6-14.6)
[2020-07-07 06:16] LABS: CHLORIDE 105 mEq/L (98-107)
[2020-07-07] MEDS: BLOOD SUGAR DIAGNOSTIC STRIP TEST SCH ×4 (06:28→21:00)
[2020-07-07 06:29] LABS: LDL CHOLESTEROL 55 mg/dL (5-100)
[2020-07-07 06:30] LABS: CREATINE KINASE MB FRACTION < 1.0 ng/mL (0.5-3.6); HDL CHOLESTEROL 28 mg/dL (40-59)
[2020-07-07 06:31] LABS: T4 FREE 1.72 ng/dL (0.76-1.46)
[2020-07-07 06:33] LABS: CREATINE KINASE 33 IU/L (39-308)
[2020-07-07 07:59] VITALS: BP 126/95
[2020-07-07] MEDS: ASPIRIN 81MG EC TABLET PO SCH (08:17)
[2020-07-07] MEDS: FUROSEMIDE 40MG/4ML VIAL IVP SCH (08:17)
[2020-07-07] MEDS: CARVEDILOL 6.25 MG TABLET PO SCH ×2 (08:17→20:59)
[2020-07-07] MEDS: LOSARTAN POTASSIUM 25 MG TABLET PO SCH (08:17)
[2020-07-07] MEDS: INSULIN LISPRO 100 UNITS/ML SUBCUT SCH ×4 (08:18→21:04)
[2020-07-07 10:25] LABS: CLARITY URINE CLEAR (CLEAR); COLOR URINE YELLOW (YELLOW); KETONES URINE NEGATIVE (NEGATIVE); LEUKOCYTE ESTERASE URINE 1+ (NEGATIVE); NITRITE URINE NEGATIVE (NEGATIVE); OCCULT BLOOD URINE NEGATIVE (NEGATIVE); PROTEIN URINE NEGATIVE (NEGATIVE); SPECIFIC GRAVITY URINE 1.024 (1.005-1.030)
[2020-07-07 12:01] VITALS: BP 115/81
[2020-07-07 15:56] VITALS: BP 114/75
[2020-07-07 20:00] VITALS: BP 140/86
[2020-07-07] MEDS: ATORVASTATIN CALCIUM 20MG TABLET PO SCH (20:59)
[2020-07-07] MEDS: FAMOTIDINE 20MG TABLET PO SCH (20:59)
[2020-07-08] VITALS: BP 112/81
[2020-07-08 04:00] VITALS: BP 116/84
[2020-07-08 06:10] LABS: HEMATOCRIT 36.1 % (42.0-52.0); HEMOGLOBIN 12.2 g/dL (14.0-18.0); MEAN CORPUSCULAR HEMOGLOBIN 32.7 pg (28.0-32.0); MEAN CORPUSCULAR VOLUME 96.9 fL (80.0-94.0); PLATELET 71 x1000/uL (130-400); RED BLOOD CELL COUNT 3.72 mill/uL (4.7-6.1); RED CELL DISTRIBUTION WIDTH 13.4 % (11.6-14.6)
[2020-07-08] MEDS: BLOOD SUGAR DIAGNOSTIC STRIP TEST SCH ×4 (06:14→21:31)
[2020-07-08 07:49] VITALS: BP 116/79
[2020-07-08] MEDS: INSULIN LISPRO 100 UNITS/ML SUBCUT SCH ×4 (08:45→21:33)
[2020-07-08] MEDS: ASPIRIN 81MG EC TABLET PO SCH (08:52)
[2020-07-08] MEDS: FUROSEMIDE 40MG/4ML VIAL IVP SCH (08:52)
[2020-07-08] MEDS: LOSARTAN POTASSIUM 25 MG TABLET PO SCH (08:53)
[2020-07-08] MEDS: CARVEDILOL 6.25 MG TABLET PO SCH ×2 (08:55→21:00)
[2020-07-08 11:58] VITALS: BP 115/76
[2020-07-08 16:17] VITALS: BP 84/54
[2020-07-08 20:00] VITALS: BP 109/79
[2020-07-08] MEDS ORDERED: POTASSIUM CHLORIDE 20MEQ TABLET SR PO NR (20:00)
[2020-07-08] MEDS: FAMOTIDINE 20MG TABLET PO SCH (21:31)
[2020-07-08] MEDS: ATORVASTATIN CALCIUM 20MG TABLET PO SCH (21:31)
[2020-07-08] MEDS ORDERED: ENOXAPARIN 80MG/0.8ML SYR SUBCUT NR (22:00)
[2020-07-09] VITALS: BP 97/65
[2020-07-09 04:00] VITALS: BP 131/94
[2020-07-09 06:54] LABS: BASOPHILS % 0.3 % (0.0-2.0); EOSINOPHILS % 2.1 % (0.0-5.0); HEMATOCRIT. 36.8 % (42.0-52.0); HEMOGLOBIN. 12.4 g/dL (14.0-18.0); LYMPHOCYTES % 28.1 % (20.0-50.0); MEAN CORPUSCULAR HEMOGLOBIN 32.7 pg (28.0-32.0); MEAN CORPUSCULAR VOLUME 96.7 fL (80.0-94.0); MEAN PLATELET VOLUME 12.6 fl (7.4-10.4); MONOCYTES % 8.9 % (2.0-8.0); NEUTROPHILS % 60.6 % (40.0-76.0); PLATELET 73 x1000/uL (130-400); RED CELL DISTRIBUTION WIDTH 13.3 % (11.6-14.6)
[2020-07-09] MEDS: BLOOD SUGAR DIAGNOSTIC STRIP TEST SCH ×3 (07:43→18:09)
[2020-07-09] MEDS: INSULIN LISPRO 100 UNITS/ML SUBCUT SCH ×3 (07:44→18:16)
[2020-07-09 08:00] VITALS: BP 113/66
[2020-07-09] MEDS: LOSARTAN POTASSIUM 25 MG TABLET PO SCH (09:00)
[2020-07-09] MEDS: ASPIRIN 81MG EC TABLET PO SCH (09:27)
[2020-07-09] MEDS: FUROSEMIDE 40MG/4ML VIAL IVP SCH (09:27)
[2020-07-09] MEDS: CARVEDILOL 6.25 MG TABLET PO SCH ×2 (09:27→21:22)
[2020-07-09 12:00] VITALS: BP 110/71
[2020-07-09] MEDS: AMIODARONE HCL 200 MG TABLET PO SCH ×2 (13:56→18:15)
[2020-07-09 16:00] VITALS: BP 115/66
[2020-07-09] MEDS: ATORVASTATIN CALCIUM 20MG TABLET PO SCH (21:21)
[2020-07-09] MEDS: FAMOTIDINE 20MG TABLET PO SCH (21:21)
[2020-07-09] MEDS ORDERED: ENOXAPARIN 80MG/0.8ML SYR SUBCUT SCH (22:00)
[2020-07-10] MEDS: BLOOD SUGAR DIAGNOSTIC STRIP TEST SCH ×4 (07:20→21:43)
[2020-07-10 07:29] LABS: HEMATOCRIT 37.3 % (42.0-52.0); HEMOGLOBIN 12.5 g/dL (14.0-18.0); MEAN CORPUSCULAR HEMOGLOBIN 32.4 pg (28.0-32.0); MEAN CORPUSCULAR VOLUME 96.9 fL (80.0-94.0); PLATELET 78 x1000/uL (130-400); RED BLOOD CELL COUNT 3.85 mill/uL (4.7-6.1); RED CELL DISTRIBUTION WIDTH 13.1 % (11.6-14.6)
[2020-07-10] MEDS: INSULIN LISPRO 100 UNITS/ML SUBCUT SCH ×4 (07:50→20:37)
[2020-07-10 08:00] VITALS: BP 121/73
[2020-07-10] MEDS: CARVEDILOL 6.25 MG TABLET PO SCH ×2 (09:00→20:43)
[2020-07-10] MEDS: FUROSEMIDE 40MG/4ML VIAL IVP SCH (09:00)
[2020-07-10] MEDS: ASPIRIN 81MG EC TABLET PO SCH ×2 (09:00→17:55)
[2020-07-10] MEDS: AMIODARONE HCL 200 MG TABLET PO SCH ×3 (09:00→21:49)
[2020-07-10] MEDS: LOSARTAN POTASSIUM 25 MG TABLET PO SCH ×2 (09:00→17:55)
[2020-07-10] MEDS ORDERED: NICARDIPINE 100MCG/ML 10ML VIAL (CATH LAB) IV ONE (10:00)
[2020-07-10] MEDS ORDERED: HEPARIN SODIUM 1,000 UNIT/1ML VIAL IV ONE (10:00)
[2020-07-10] MEDS ORDERED: NITROGLYCERIN 50MCG/ML 10ML VIAL (CATH LAB) IV ONE (10:00)
[2020-07-10] MEDS ORDERED: IODIXANOL 320MG/ML 200ML BOTTLE ONE (10:11)
[2020-07-10] MEDS ORDERED: LIDOCAINE HCL 1% 20ML VIAL (Pyxis) INJ ONE (10:11)
[2020-07-10] MEDS ORDERED: MIDAZOLAM HCL 2 MG/2 ML VIAL ONE (10:40)
[2020-07-10] MEDS ORDERED: FENTANYL CITRATE/PF 50MCG/ML 2ML VIAL ONE (10:40)
[2020-07-10] MEDS ORDERED: SODIUM CHLORIDE 0.45% 500 ML IV ONE (11:00)
[2020-07-10] MEDS ORDERED: ONDANSETRON HCL 4MG/2ML INJ IV PRN (11:00)
[2020-07-10] MEDS ORDERED: ATROPINE SULFATE 1MG/10ML SYR IV PRN (11:00)
[2020-07-10] MEDS ORDERED: MORPHINE SULFATE 2 MG/ML CPJ (NOT FOR IM USE) IV PRN (11:00)
[2020-07-10] MEDS ORDERED: ACETAMINOPHEN 325MG TABLET PO PRN (11:00)
[2020-07-10] MEDS: SPIRONOLACTONE 25MG TABLET PO SCH ×2 (12:45→17:55)
[2020-07-10 16:56] VITALS: BP 125/75
[2020-07-10 18:05] LABS: HEMATOCRIT 38.2 % (42.0-52.0); HEMOGLOBIN 12.8 g/dL (14.0-18.0); MEAN CORPUSCULAR HEMOGLOBIN 32.2 pg (28.0-32.0); MEAN CORPUSCULAR VOLUME 96.1 fL (80.0-94.0); PLATELET 74 x1000/uL (130-400); RED BLOOD CELL COUNT 3.97 mill/uL (4.7-6.1); RED CELL DISTRIBUTION WIDTH 13.2 % (11.6-14.6)
[2020-07-10 20:00] VITALS: BP 123/71
[2020-07-10] MEDS: ATORVASTATIN CALCIUM 20MG TABLET PO SCH (20:43)
[2020-07-10] MEDS: FAMOTIDINE 20MG TABLET PO SCH (20:44)
[2020-07-10] MEDS ORDERED: RIVAROXABAN 20 MG TABLET PO SCH (21:00)
[2020-07-11] VITALS (10 sets, daily range): BP systolic 77–131; BP diastolic 46–98
[2020-07-11 06:18] LABS: HEMATOCRIT. 39.6 % (42.0-52.0); HEMOGLOBIN. 13.2 g/dL (14.0-18.0); LYMPHOCYTES % 7.6 % (20.0-50.0); MEAN CORPUSCULAR HEMOGLOBIN 32.2 pg (28.0-32.0); MEAN CORPUSCULAR VOLUME 96.9 fL (80.0-94.0); MEAN PLATELET VOLUME 11.4 fl (7.4-10.4); MONOCYTES % 4.2 % (2.0-8.0); NEUTROPHILS % 88.2 % (40.0-76.0); PLATELET 66 x1000/uL (130-400); RED BLOOD CELL COUNT 4.09 mill/uL (4.7-6.1); RED CELL DISTRIBUTION WIDTH 13.8 % (11.6-14.6)
[2020-07-11] MEDS: AMIODARONE HCL 200 MG TABLET PO SCH ×3 (06:51→22:07)
[2020-07-11] MEDS: BLOOD SUGAR DIAGNOSTIC STRIP TEST SCH ×4 (07:20→21:00)
[2020-07-11] MEDS ORDERED: DILTIAZEM HCL 5MG/ML 5ML VIAL IV SCH (08:45)
[2020-07-11] MEDS: FUROSEMIDE 40MG TABLET PO SCH (09:06)
[2020-07-11] MEDS: SPIRONOLACTONE 25MG TABLET PO SCH (09:06)
[2020-07-11] MEDS: ASPIRIN 81MG EC TABLET PO SCH (09:07)
[2020-07-11] MEDS: LOSARTAN POTASSIUM 25 MG TABLET PO SCH (09:07)
[2020-07-11] MEDS: CARVEDILOL 6.25 MG TABLET PO SCH ×2 (09:07→21:00)
[2020-07-11] MEDS: INSULIN LISPRO 100 UNITS/ML SUBCUT SCH ×4 (09:08→22:09)
[2020-07-11] MEDS ORDERED: LEVOFLOXACIN 750MG PREMIX 150 ML IV SCH (10:00)
[2020-07-11] MEDS ORDERED: SODIUM CHLORIDE 0.9% 250 ML IV ONE ×2 (11:45→13:30)
[2020-07-11 12:03] LABS: BG BASE EXCESS -0.5 mmol/L (-2.0-2.0); BG CARBOXYHEMOGLOBIN 0.5 % (0.5-1.5); BG DEOXYHEMOGLOBIN 7.5 % (0.0-5.0); BG FRACTION INSPIRED OXYGEN 28; BG HCO3 ACT 22.6 mmol/L (22.0-26.0); BG METHEMOGLOBIN 0.3 % (0.0-1.5); BG OXYGEN SATURATION 92.4 % (92.0-98.5); BG OXYHEMOGLOBIN 91.7 % (94.0-97.0); BG PCO2 32.5 mmHg (35.0-45.0); BG PO2 63.7 mmHg (75.0-100.0); BG SAMPLE SITE RIGHT RADIAL; BG TOTAL HEMOGLOBIN 12.6 g/dL (12.0-18.0); BG VENT MODE NASAL CANNULA
[2020-07-11] MEDS ORDERED: RIVAROXABAN 20 MG TABLET PO NR (13:30)
[2020-07-11] MEDS ORDERED: DIGOXIN 500MCG/2ML AMP IV NR (13:30)
[2020-07-11] MEDS ORDERED: VANCOMYCIN 1,750 MG in DEXT 5% WATER 250 ML IV NR (14:00)
[2020-07-11] MEDS ORDERED: RIVAROXABAN 20 MG TABLET PO SCH (17:00)
[2020-07-11] MEDS ORDERED: DIGOXIN 500MCG/2ML AMP IV PRN (17:00)
[2020-07-11] MEDS: CEFEPIME 1,000 MG in DEXTROSE 5% WATER 50 ML IV SCH (17:27)
[2020-07-11] MEDS: ATORVASTATIN CALCIUM 20MG TABLET PO SCH (22:07)
[2020-07-11] MEDS: FAMOTIDINE 20MG TABLET PO SCH (22:07)
[2020-07-12] VITALS (12 sets, daily range): BP systolic 81–121; BP diastolic 42–73
[2020-07-12] MEDS: CEFEPIME 1,000 MG in DEXTROSE 5% WATER 50 ML IV SCH ×2 (04:36→16:44)
[2020-07-12] MEDS: AMIODARONE HCL 200 MG TABLET PO SCH ×3 (05:08→21:01)
[2020-07-12 06:10] LABS: BASOPHILS % 0.2 % (0.0-2.0); HEMATOCRIT. 34.6 % (42.0-52.0); HEMOGLOBIN. 11.5 g/dL (14.0-18.0); LYMPHOCYTES % 11.7 % (20.0-50.0); MEAN CORPUSCULAR HEMOGLOBIN 32.6 pg (28.0-32.0); MEAN PLATELET VOLUME 12.6 fl (7.4-10.4); MONOCYTES % 8.2 % (2.0-8.0); NEUTROPHILS % 79.9 % (40.0-76.0); RED BLOOD CELL COUNT 3.53 mill/uL (4.7-6.1); RED CELL DISTRIBUTION WIDTH 13.6 % (11.6-14.6)
[2020-07-12] MEDS ORDERED: VANCOMYCIN 1 G PREMIX 200 ML IV SCH (08:00)
[2020-07-12] MEDS: CARVEDILOL 6.25 MG TABLET PO SCH (09:00)
[2020-07-12] MEDS: SPIRONOLACTONE 25MG TABLET PO SCH (09:00)
[2020-07-12] MEDS: LOSARTAN POTASSIUM 25 MG TABLET PO SCH (09:00)
[2020-07-12] MEDS: ASPIRIN 81MG EC TABLET PO SCH (09:21)
[2020-07-12] MEDS: BLOOD SUGAR DIAGNOSTIC STRIP TEST SCH ×4 (09:22→21:00)
[2020-07-12] MEDS: FUROSEMIDE 40MG TABLET PO SCH (09:24)
[2020-07-12] MEDS: INSULIN LISPRO 100 UNITS/ML SUBCUT SCH ×4 (09:26→21:12)
[2020-07-12 09:53] LABS: AMYLASE 30 IU/L (25-115)
[2020-07-12] MEDS ORDERED: INSULIN GLARGINE UD 100 UNITS/ML SYR SUBCUT SCH (14:00)
[2020-07-12] MEDS ORDERED: SODIUM CHLORIDE 0.45% 1,000 ML IV SCH (14:00)
[2020-07-12 17:00] LABS: PLATELET ESTIMATE MARKEDLY DECREASED
[2020-07-12] MEDS ORDERED: RIVAROXABAN 20 MG TABLET PO SCH (17:00)
[2020-07-12 17:41] LABS: CLARITY URINE CLEAR (CLEAR); COLOR URINE DARK YELLOW (YELLOW); KETONES URINE TRACE (NEGATIVE); LEUKOCYTE ESTERASE URINE NEGATIVE (NEGATIVE); NITRITE URINE NEGATIVE (NEGATIVE); OCCULT BLOOD URINE NEGATIVE (NEGATIVE); PROTEIN URINE NEGATIVE (NEGATIVE)
[2020-07-12 17:59] LABS: SODIUM URINE RANDOM < 5 mEq/L
[2020-07-12] MEDS: CARVEDILOL 3.125 MG TABLET PO SCH (20:23)
[2020-07-12] MEDS: FAMOTIDINE 20MG TABLET PO SCH (20:59)
[2020-07-12] MEDS: ATORVASTATIN CALCIUM 20MG TABLET PO SCH (20:59)
[2020-07-12] MEDS: INSULIN GLARGINE UD 100 UNITS/ML SYR SUBCUT SCH (22:48)
[2020-07-13] VITALS (13 sets, daily range): BP systolic 88–125; BP diastolic 49–75
[2020-07-13] MEDS: CEFEPIME 1,000 MG in DEXTROSE 5% WATER 50 ML IV SCH (03:42)
[2020-07-13] MEDS: AMIODARONE HCL 200 MG TABLET PO SCH ×3 (05:48→21:31)
[2020-07-13 06:34] LABS: BASOPHILS % 0.2 % (0.0-2.0); EOSINOPHILS % 0.7 % (0.0-5.0); HEMATOCRIT. 36.6 % (42.0-52.0); HEMOGLOBIN. 12.1 g/dL (14.0-18.0); LYMPHOCYTES % 18.1 % (20.0-50.0); MEAN CORPUSCULAR HEMOGLOBIN 31.7 pg (28.0-32.0); MEAN CORPUSCULAR VOLUME 96.2 fL (80.0-94.0); MEAN PLATELET VOLUME 11.6 fl (7.4-10.4); MONOCYTES % 11.4 % (2.0-8.0); NEUTROPHILS % 69.6 % (40.0-76.0); RED BLOOD CELL COUNT 3.81 mill/uL (4.7-6.1); RED CELL DISTRIBUTION WIDTH 13.8 % (11.6-14.6)
[2020-07-13 06:36] LABS: PLATELET 46 x1000/uL (130-400)
[2020-07-13] MEDS: BLOOD SUGAR DIAGNOSTIC STRIP TEST SCH ×4 (07:30→20:23)
[2020-07-13] MEDS ORDERED: VANCOMYCIN 1 G PREMIX 200 ML IV SCH (08:00)
[2020-07-13] MEDS: CARVEDILOL 3.125 MG TABLET PO SCH ×2 (08:35→21:00)
[2020-07-13] MEDS: ASPIRIN 81MG EC TABLET PO SCH (08:36)
[2020-07-13] MEDS: INSULIN LISPRO 100 UNITS/ML SUBCUT SCH ×4 (08:38→20:24)
[2020-07-13 09:39] LABS: PLATELET 48 x1000/uL (130-400)
[2020-07-13] MEDS: INSULIN GLARGINE UD 100 UNITS/ML SYR SUBCUT SCH ×2 (10:17→21:32)
[2020-07-13] MEDS: FAMOTIDINE 20MG TABLET PO SCH (21:31)
[2020-07-13] MEDS: ATORVASTATIN CALCIUM 20MG TABLET PO SCH (21:31)
[2020-07-13] MEDS ORDERED: VANCOMYCIN 1250MG in DEXTROSE 5% WATER 250ML IV SCH (22:00)
[2020-07-14] VITALS: BP 118/61
[2020-07-14] MEDS: AMIODARONE HCL 200 MG TABLET PO SCH ×2 (05:53→13:22)
[2020-07-14] MEDS: BLOOD SUGAR DIAGNOSTIC STRIP TEST SCH ×3 (07:30→21:31)
[2020-07-14 08:00] VITALS: BP 117/80
[2020-07-14] MEDS: INSULIN LISPRO 100 UNITS/ML SUBCUT SCH ×4 (08:00→21:00)
[2020-07-14 08:09] LABS: BASOPHILS % 0.2 % (0.0-2.0); EOSINOPHILS % 0.7 % (0.0-5.0); HEMATOCRIT. 36.7 % (42.0-52.0); HEMOGLOBIN. 12.1 g/dL (14.0-18.0); LYMPHOCYTES % 22.3 % (20.0-50.0); MEAN CORPUSCULAR HEMOGLOBIN 31.7 pg (28.0-32.0); MEAN CORPUSCULAR VOLUME 96.4 fL (80.0-94.0); MEAN PLATELET VOLUME 13.1 fl (7.4-10.4); NEUTROPHILS % 63.8 % (40.0-76.0); RED CELL DISTRIBUTION WIDTH 13.6 % (11.6-14.6)
[2020-07-14 08:30] LABS: PLATELET 47 x1000/uL (130-400)
[2020-07-14] MEDS: ASPIRIN 81MG EC TABLET PO SCH (09:14)
[2020-07-14] MEDS: CARVEDILOL 3.125 MG TABLET PO SCH (09:15)
[2020-07-14] MEDS: INSULIN GLARGINE UD 100 UNITS/ML SYR SUBCUT SCH ×2 (09:16→22:00)
[2020-07-14 10:00] VITALS: BP 102/69
[2020-07-14 12:00] VITALS: BP 125/56
[2020-07-14] MEDS: FUROSEMIDE 20MG TABLET PO SCH (15:49)
[2020-07-14 16:00] VITALS: BP 133/55
[2020-07-14] MEDS: CEFAZOLIN 2,000 MG in DEXT 5% WATER 100 ML IV SCH ×2 (16:23→21:53)
[2020-07-14 20:00] VITALS: BP 90/51
[2020-07-14] MEDS: ATORVASTATIN CALCIUM 20MG TABLET PO SCH (20:56)
[2020-07-14] MEDS: FAMOTIDINE 20MG TABLET PO SCH (20:56)
[2020-07-14] MEDS: CARVEDILOL 6.25 MG TABLET PO SCH (21:00)
[2020-07-15] VITALS: BP 100/70
[2020-07-15 04:00] VITALS: BP 121/69
[2020-07-15] MEDS: CEFAZOLIN 2,000 MG in DEXT 5% WATER 100 ML IV SCH ×3 (05:00→21:17)
[2020-07-15 06:21] LABS: BASOPHILS % 0.2 % (0.0-2.0); EOSINOPHILS % 0.9 % (0.0-5.0); HEMATOCRIT. 37.5 % (42.0-52.0); HEMOGLOBIN. 12.4 g/dL (14.0-18.0); LYMPHOCYTES % 22.5 % (20.0-50.0); MEAN CORPUSCULAR HEMOGLOBIN 31.9 pg (28.0-32.0); MEAN CORPUSCULAR VOLUME 96.2 fL (80.0-94.0); MEAN PLATELET VOLUME 12.2 fl (7.4-10.4); NEUTROPHILS % 63.4 % (40.0-76.0); PLATELET 54 x1000/uL (130-400); RED BLOOD CELL COUNT 3.89 mill/uL (4.7-6.1); RED CELL DISTRIBUTION WIDTH 13.7 % (11.6-14.6)
[2020-07-15] MEDS: INSULIN LISPRO 100 UNITS/ML SUBCUT SCH ×4 (07:06→21:00)
[2020-07-15] MEDS: BLOOD SUGAR DIAGNOSTIC STRIP TEST SCH ×4 (07:06→21:00)
[2020-07-15 08:00] VITALS: BP 110/83
[2020-07-15] MEDS: CARVEDILOL 6.25 MG TABLET PO SCH ×2 (09:15→21:00)
[2020-07-15] MEDS: FUROSEMIDE 20MG TABLET PO SCH (09:15)
[2020-07-15] MEDS: INSULIN GLARGINE UD 100 UNITS/ML SYR SUBCUT SCH ×2 (09:16→22:00)
[2020-07-15 12:00] VITALS: BP 107/71
[2020-07-15 16:00] VITALS: BP 129/82
[2020-07-15 20:00] VITALS: BP 106/62
[2020-07-15] MEDS: FAMOTIDINE 20MG TABLET PO SCH (22:04)
[2020-07-15] MEDS: ATORVASTATIN CALCIUM 20MG TABLET PO SCH (22:04)
[2020-07-16] VITALS (9 sets, daily range): BP systolic 107–133; BP diastolic 48–81
[2020-07-16 06:12] LABS: BASOPHILS % 0.3 % (0.0-2.0); EOSINOPHILS % 1.4 % (0.0-5.0); HEMATOCRIT. 36.3 % (42.0-52.0); LYMPHOCYTES % 21.7 % (20.0-50.0); MEAN CORPUSCULAR VOLUME 96.8 fL (80.0-94.0); MEAN PLATELET VOLUME 11.9 fl (7.4-10.4); MONOCYTES % 12.5 % (2.0-8.0); NEUTROPHILS % 64.1 % (40.0-76.0); PLATELET 54 x1000/uL (130-400); RED BLOOD CELL COUNT 3.75 mill/uL (4.7-6.1); RED CELL DISTRIBUTION WIDTH 13.7 % (11.6-14.6)
[2020-07-16] MEDS: CEFAZOLIN 2,000 MG in DEXT 5% WATER 100 ML IV SCH ×3 (06:25→23:38)
[2020-07-16] MEDS: BLOOD SUGAR DIAGNOSTIC STRIP TEST SCH ×4 (06:43→21:00)
[2020-07-16] MEDS: INSULIN LISPRO 100 UNITS/ML SUBCUT SCH ×4 (06:43→23:37)
[2020-07-16] MEDS: FUROSEMIDE 20MG TABLET PO SCH (08:58)
[2020-07-16] MEDS: CARVEDILOL 6.25 MG TABLET PO SCH ×2 (08:58→23:37)
[2020-07-16] MEDS: INSULIN GLARGINE UD 100 UNITS/ML SYR SUBCUT SCH (10:24)
[2020-07-16 20:32] LABS: HEMATOCRIT 35.9 % (42.0-52.0); HEMOGLOBIN 11.5 g/dL (14.0-18.0); MEAN CORPUSCULAR HEMOGLOBIN 31.6 pg (28.0-32.0); MEAN CORPUSCULAR VOLUME 98.3 fL (80.0-94.0); PLATELET 67 x1000/uL (130-400); RED BLOOD CELL COUNT 3.65 mill/uL (4.7-6.1); RED CELL DISTRIBUTION WIDTH 14.1 % (11.6-14.6)
[2020-07-16] MEDS: FAMOTIDINE 20MG TABLET PO SCH (23:38)
[2020-07-16] MEDS: ATORVASTATIN CALCIUM 20MG TABLET PO SCH (23:38)
[2020-07-17] VITALS (7 sets, daily range): BP systolic 102–121; BP diastolic 51–75
[2020-07-17 06:58] LABS: BASOPHILS % 0.3 % (0.0-2.0); EOSINOPHILS % 1.8 % (0.0-5.0); HEMATOCRIT. 36.1 % (42.0-52.0); LYMPHOCYTES % 21.8 % (20.0-50.0); MEAN CORPUSCULAR HEMOGLOBIN 32.3 pg (28.0-32.0); MEAN CORPUSCULAR VOLUME 96.9 fL (80.0-94.0); MEAN PLATELET VOLUME 10.7 fl (7.4-10.4); MONOCYTES % 11.9 % (2.0-8.0); NEUTROPHILS % 64.2 % (40.0-76.0); PLATELET 73 x1000/uL (130-400); RED BLOOD CELL COUNT 3.72 mill/uL (4.7-6.1); RED CELL DISTRIBUTION WIDTH 13.8 % (11.6-14.6)
[2020-07-17] MEDS: INSULIN LISPRO 100 UNITS/ML SUBCUT SCH ×4 (07:15→21:09)
[2020-07-17 07:27] LABS: CHLORIDE 102 mEq/L (98-107)
[2020-07-17] MEDS: BLOOD SUGAR DIAGNOSTIC STRIP TEST SCH ×4 (07:44→21:00)
[2020-07-17] MEDS: CEFAZOLIN 2,000 MG in DEXT 5% WATER 100 ML IV SCH ×2 (07:54→16:04)
[2020-07-17] MEDS: FUROSEMIDE 20MG TABLET PO SCH (09:00)
[2020-07-17] MEDS: CARVEDILOL 6.25 MG TABLET PO SCH ×2 (09:00→21:07)
[2020-07-17] MEDS ORDERED: TETRACAINE/BENZOCAINE/BUTAMBEN 20 GM SPRAY MM ONE (12:04)
[2020-07-17] MEDS ORDERED: LIDOCAINE HCL 2% JELLY 5ML ONE (12:04)
[2020-07-17] MEDS ORDERED: MIDAZOLAM HCL 2 MG/2 ML VIAL ONE (12:56)
[2020-07-17] MEDS ORDERED: FENTANYL CITRATE/PF 50MCG/ML 2ML VIAL ONE (12:56)
[2020-07-17] MEDS ORDERED: MIDAZOLAM HCL 5 MG/5 ML VIAL ONE (15:08)
[2020-07-17] MEDS ORDERED: FURO-152 MT (15:18)
[2020-07-17] MEDS ORDERED: CEFTRIAXONE 2 G PREMIX 50 ML IV SCH (17:00)
[2020-07-17] MEDS ORDERED: RIVAROXABAN 20 MG TABLET PO SCH (17:00)
[2020-07-17] MEDS ORDERED: CEFTRIAXONE 2 G in DEXTROSE 5% WATER 50 ML IV SCH (19:00)
[2020-07-17] MEDS: FAMOTIDINE 20MG TABLET PO SCH (21:06)
[2020-07-17] MEDS: ATORVASTATIN CALCIUM 20MG TABLET PO SCH (21:06)
[2020-07-18] VITALS: BP 100/53
[2020-07-18 04:00] VITALS: BP 115/64
[2020-07-18] MEDS: BLOOD SUGAR DIAGNOSTIC STRIP TEST SCH (06:21)
[2020-07-18] MEDS: INSULIN LISPRO 100 UNITS/ML SUBCUT SCH (06:22)
[2020-07-18 07:09] LABS: HEMATOCRIT 34.3 % (42.0-52.0); HEMOGLOBIN 11.4 g/dL (14.0-18.0); MEAN CORPUSCULAR HEMOGLOBIN 32.3 pg (28.0-32.0); MEAN CORPUSCULAR VOLUME 97.4 fL (80.0-94.0); PLATELET 80 x1000/uL (130-400); RED BLOOD CELL COUNT 3.52 mill/uL (4.7-6.1); RED CELL DISTRIBUTION WIDTH 14.2 % (11.6-14.6)
[2020-07-18 07:25] LABS: CHLORIDE 103 mEq/L (98-107)
[2020-07-18 08:00] VITALS: BP 123/73
[2020-07-18] MEDS: CARVEDILOL 6.25 MG TABLET PO SCH (09:19)
[2020-07-18] MEDS: FUROSEMIDE 20MG TABLET PO SCH (09:20)
[2020-07-18] MEDS ORDERED: FENTANYL CITRATE/PF 50MCG/ML 5ML VIAL ONE (12:35)
[2020-07-18] MEDS ORDERED: MIDAZOLAM HCL 5 MG/5 ML VIAL ONE (12:35)
[2020-07-18] MEDS ORDERED: IODIXANOL 320MG/ML 100 ML BOTTLE IV ONE (12:36)
== END 2020-07-18 12:05 | disposition home health service (06) | DRG 286 ==
LOC: ER 11:47 → 6WST 19:18 → ENRESERV 21:06 → 5EST 07-11 12:14 → 5WST 07-14 16:51
PROVIDERS: ADMIT Internal Medicine; ATTEND Internal Medicine
PROC: 4A023N7 Measurement of Cardiac Sampling and Pressure, Left Heart, Percutaneous Approach (ICD-10-PCS; principal; 2020-07-10)
PROC: B2111ZZ Fluoroscopy of Multiple Coronary Arteries using Low Osmolar Contrast (ICD-10-PCS; 2020-07-10)
PROC: B2151ZZ Fluoroscopy of Left Heart using Low Osmolar Contrast (ICD-10-PCS; 2020-07-10)
PROC: B2181ZZ Fluoroscopy of Left Internal Mammary Bypass Graft using Low Osmolar Contrast (ICD-10-PCS; 2020-07-10)
PROC: B2131ZZ Fluoroscopy of Multiple Coronary Artery Bypass Grafts using Low Osmolar Contrast (ICD-10-PCS; 2020-07-10)
PROC: 05H933Z Insertion of Infusion Device into Right Brachial Vein, Percutaneous Approach (ICD-10-PCS; 2020-07-11)
PROC: B54MZZA Ultrasonography of Right Upper Extremity Veins, Guidance (ICD-10-PCS; 2020-07-11)
PROC: 30233R1 Transfusion of Nonautologous Platelets into Peripheral Vein, Percutaneous Approach (ICD-10-PCS; 2020-07-16)
PROC: B24BZZ4 Ultrasonography of Heart with Aorta, Transesophageal (ICD-10-PCS; 2020-07-17)
DX: I48.19 Other persistent atrial fibrillation (principal); I50.23 Acute on chronic systolic (congestive) heart failure; N17.0 Acute kidney failure with tubular necrosis; A41.01 Sepsis due to Methicillin susceptible Staphylococcus aureus; G93.41 Metabolic encephalopathy; D68.59 Other primary thrombophilia; I48.92 Unspecified atrial flutter; I47.2 Ventricular tachycardia; D69.6 Thrombocytopenia, unspecified; E11.65 Type 2 diabetes mellitus with hyperglycemia; K74.60 Unspecified cirrhosis of liver; I25.10 Atherosclerotic heart disease of native coronary artery without angina pectoris; E78.5 Hyperlipidemia, unspecified; I25.5 Ischemic cardiomyopathy; I11.0 Hypertensive heart disease with heart failure; I27.20 Pulmonary hypertension, unspecified; I08.3 Combined rheumatic disorders of mitral, aortic and tricuspid valves; E78.00 Pure hypercholesterolemia, unspecified; D64.9 Anemia, unspecified; I25.82 Chronic total occlusion of coronary artery; Z79.01 Long term (current) use of anticoagulants; Z95.1 Presence of aortocoronary bypass graft; Z95.810 Presence of automatic (implantable) cardiac defibrillator; Z95.5 Presence of coronary angioplasty implant and graft; Z90.49 Acquired absence of other specified parts of digestive tract; Z79.899 Other long term (current) drug therapy; Z86.79 Personal history of other diseases of the circulatory system; Z20.822 Contact with and (suspected) exposure to COVID-19; Z79.4 Long term (current) use of insulin; Z87.891 Personal history of nicotine dependence
CPT/HCPCS: 36415; 36600; 71045; 76700; 76937; 80048; 80053; 80061; 80076; 80202; 81003; 82150; 82375; 82550; 82553; 82570; 82805; 82962; 83735; 83880; 83935; 84145; 84153; 84300; 84439; 84443; 84484; 85025; 85027; 85379; 85384; 86850; 86900; 87077; 87186; 87426; 93005; 93306; 93312; 93459; 93970; 97162; 99285; C1725; C1769; C1887; C1893; J0690; J0692; J0696; J1160; J1644; J1650; J1815; J1940; J1956; J2250; J2405; J3010; J3370; J3490; J7040; J7060; P9034; Q9967; G0103